=== PATIENT | female | born 1990 | race Caucasian/White ===

== ENCOUNTER 2023-11-08 14:34 | Emergency (ER) | payer SELFPAY ==
[2023-11-08 14:35] VITALS: BP 109/84; PULSE 86; RESP 18; TEMP 36.6; O2SAT 98
--- NOTE | 2023-11-08 14:47 | EDS_ITS ---
<Statement entered by Jada Queen MD - 11/08/23 19:24> I have personally performed a face to face assessment of the patient and have reviewed the AMY Note. Patient presents secondary to right upper quadrant abdominal pain. She states that she ate some peanut butter crackers and some body bars this morning and then developed right upper quadrant pain that radiates into her back. She has had nausea but no vomiting. No fever. She denies any recent food intolerance prior to today. Patient lying in bed no acute distress. Appears nontoxic. Head and neck examination unremarkable. Heart is regular rate and rhythm. Lung sounds are clear. Abdomen is soft with focal tenderness in the right upper quadrant. No guarding or rebound. CBC was a white count of 12.0 with normal differential. Hemoglobin is 13.4. Chemistry studies significant for potassium of 3.4. LFTs and lipase are normal. Urinalysis reveals no evidence of acute infection. CT scan of the abdomen pelvis with IV contrast reveals a gallstone with wall thickening. Left ovarian cyst noted. After receiving morphine and Zofran, patient continues to have right upper quadrant pain. Right upper quadrant ultrasound was ordered to evaluate for acute cholecystitis given her gallstone and gallbladder wall thickening, however patient signed out AMA before the study could be performed. HPI History of Present Illness Chief Complaint: Flank Pain Narrative Narrative: 32-year-old female ate peanut butter crackers and nutty bars around 9 AM and then developed right lower rib upper quadrant abdominal pain and mid-back pain. She states it feels like a pulsating pain. She has nausea without vomiting. She has a history of chronic constipation and had a BM a few days ago. No recent melena or hematochezia. She states in her early 20s she had a CAT scan and was told she may have Crohn's disease but has never followed up with a specialist or had any additional testing. She is not on any medications. She has had a bilateral tubal ligation. She smokes about a pack a day and denies alcohol use. [facility] Medical History (Updated 11/08/23 @ 16:43 by PETROS Sherwood) Physical exam, pre-employment Home Medications ?Medication ?Instructions ?Recorded ?Last Taken ?Type ferrous sulfate 324 mg (65 mg 324 mg PO BID 05/08/16 05/08/16 History iron) tablet,delayed release ibuprofen 600 mg tablet 600 mg PO 4X/DAY PRN pain or 05/08/16 Unknown Rx cramping #30 tabs oxycodone 5 mg tablet 5 - 10 mg (1 - 2 x 5 mg) PO Q4H 05/08/16 Unknown Rx PRN PRN Mod-Severe Pain (4-10/10) ##30 vits,calcium no.78-iron 1 tab PO DAILY 05/08/16 1 Day Ago History fumarate-folic acid 29 mg-1 mg ~05/07/16 tablet (Prenatabs FA) Allergy/AdvReac Type Severity Reaction Status Date / Time No Known Allergies Allergy Verified 11/08/23 14:35 Social History Smoking Status: Current every day smoker tobacco type: cigarettes ROS ROS ED ROS Narrative Constitutional: Negative for fever, chills, malaise. CVS: Negative for chest pain. Respiratory: Negative for shortness of breath, cough. GI: Positive for abdominal pain, nausea, constipation. Negative for vomiting, diarrhea, melena, hematochezia. : Negative for dysuria, hematuria or frequency. EXAM Physical Exam Narrative Exam Narrative: CONST: Patient sitting in no acute distress. EYES: Normal inspection. NECK: Normal inspection. RESP: No respiratory distress, CTAB. CVS: Regular rate and rhythm, no murmur, no gallop. ABD: Soft with RUQ and epigastric tenderness, no guarding or rebound, nondistended, no hepatosplenomegaly. Negative Gilmore sign. Back: Normal inspection, no CVA tenderness. SKIN: Color normal, no rash, warm, dry, intact. EXTREMITIES: Normal appearance, no pedal edema. NEURO: Alert and answering questions appropriately. PSYCH: Normal affect. Const Vital Signs: 11/08/23 14:35 11/08/23 16:35 Temperature 97.8 F Temperature Source Temporal Pulse Rate 86 81 Respiratory Rate 18 16 Blood Pressure 109/84 H 121/75 H Blood Pressure Mean 92 90 Pulse Ox 98 98 Oxygen Delivery Method Room Air Room Air MDM MDM MDM Narrative Medical decision making narrative: 32-year-old female with RUQ abdominal pain and back pain that started after eating this morning. She appears well and nontoxic. Vital signs stable. She is tender in the RUQ on exam, no flank tenderness. Labs show white count of 12.0, CMP and lipase unremarkable. Urinalysis negative. She has had a tubal ligation so I did not obtain a test. CT scan shows gallbladder wall thickening with a gallstone. After IV morphine and Zofran she still has mild RUQ tenderness but negative Gilmore sign. I ordered a follow-up gallbladder ultrasound and the tech was called in when the patient decided she did not want to wait and needed to go home and care for her dog and left AMA. I thoroughly discussed the risks including the possibility that this is acute cholecystitis or choledocholithiasis and could lead to end-organ damage or . She expressed understanding and is leaving. She was given the general surgery office number and told to return if symptoms worsen. Lab Data Attestation: I reviewed the patient's lab results. Labs: Laboratory Results - last 24 hr 11/08/23 11/08/23 14:50 15:41 WBC 12.0 H RBC 4.46 Hgb 13.4 Hct 40.7 MCV 91.3 MCH 30.0 MCHC 32.9 RDW Std Deviation 44.9 H RDW Coeff of Janna 13.3 Plt Count 271 MPV 9.7 Immature Gran % (Auto) 0.300 Neut % (Auto) 58.2 Lymph % (Auto) 32.9 [place] % (Auto) 5.3 Eos % (Auto) 2.7 Baso % (Auto) 0.6 Absolute Neuts (auto) 7.0 Absolute Lymphs (auto) 3.96 Nucleated RBC % 0 Sodium 138 Potassium 3.4 L Chloride 107 Carbon Dioxide 24.0 Anion Gap 7 BUN 8 Creatinine 0.78 Est GFR (MDRD) Af Amer 110 Est GFR (MDRD) Non-Af 91 BUN/Creatinine Ratio 10.3 Glucose 101 Calcium 8.9 Total Bilirubin 0.30 AST 15 ALT 20 Alkaline Phosphatase 83 Total Protein 7.0 Albumin 3.9 Globulin 3.1 Albumin/Globulin Ratio 1.3 Lipase 32 Urine Color Yellow Urine Clarity Clear Urine pH 6.0 Ur Specific [place] 1.010 Urine Protein 15 H Urine Glucose (UA) Normal Urine Ketones Negative Urine Occult Blood Negative Urine Nitrite Negative Urine Bilirubin Negative Urine Urobilinogen Normal Ur Leukocyte Esterase Negative Urine RBC 0 SEEN Urine WBC 0 SEEN Ur Squamous Epith Cells 5-10 SEEN Urine Bacteria 1+ Urine Mucus 0 SEEN Radiography Diagnostic Testing: Clinical Impression(s) from Imaging Studies Abdomen/Pelvis CT 11/08/23 14:48 IMPRESSION: Gallstone. Gallbladder wall thickening. Hepatomegaly. No biliary dilatation. Left ovarian cyst. Electronically Signed: Iftikhar Quiroz MD at 15:49 EDT , Discharge Plan Triage Chief Complaint: Flank Pain ED Midlevel Provider: Shyann Dorado ED Provider: Jada Queen Dx/Rx/DC Orders Clinical Impression: Gallstone, Abdominal pain, RUQ Instructions: ED Gallstones with Biliary Colic Prescriptions: No Action ferrous sulfate 324 MG tablet,delayed release (DR/EC) 324 mg PO BID Patient Comments: [id number] [Prenatabs FA] 1 TABLET tablet 1 tab PO DAILY ibuprofen 600 MG tablet 600 mg PO 4X/DAY PRN (Reason: pain or cramping) Qty: 30 1RF oxycodone 5 MG tablet 5 - 10 mg PO Q4H PRN PRN (Reason: Mod-Severe Pain (4-10/10)) Qty: 30 0RF Primary Care Provider: Care Physician,No Primary Referrals: Prasad Dowling MD [Med Staff - Active Staff] - Care Physician,No Primary [Primary Care Provider] - Activity Restrictions/Additional Instructions: Follow-up with a general surgeon for evaluation of your gallbladder. If symptoms worsen come back to the ER. Print Language: Togolese Disposition Disposition: Home, Self Care
--- NOTE | 2023-11-08 14:48 | CT_ITS ---
STUDY: CT ABDOMEN AND PELVIS WITH CONTRAST REASON FOR EXAM: Female, 32 years old. Abdominal pain RADIATION DOSAGE (If Supplied By Facility): CTDIvol = ( 21.64 ) mGy, DLP = ( 1132.62 ) mGycm TECHNIQUE: Transaxial images were obtained from the dome of the diaphragm to the symphysis pubis without oral contrast. IV 100mL Isovue-370 was administered. Sagittal and coronal images were reconstructed. Individualized dose optimization techniques were used for this CT. COMPARISON: None. FINDINGS: The visualized lung bases are unremarkable. The visualized portions of the heart are within normal limits. There is hepatomegaly with diffuse hepatic enlargement. There is a solitary gallstone. There is gallbladder wall thickening. Normal spleen. Normal pancreas. Normal bilateral adrenal glands. Normal right kidney. Normal left kidney. Normal visualized stomach. Normal small intestine. Normal colon. The appendix is visualized and appears normal. Normal abdominal aorta. Normal inferior vena cava. Normal retroperitoneum. Normal urinary bladder. Normal visualized uterus. There is 2.4 cm left ovarian cyst. There is no free fluid in the abdomen or pelvis. Normal abdominal wall. Normal osseous structures. CT/Abdomen/Pelvis W IV Cont ONLY IMPRESSION: Gallstone. Gallbladder wall thickening. Hepatomegaly. No biliary dilatation. Left ovarian cyst. Electronically Signed: Iftikhar Quiroz MD at 15:49 EDT ,
[2023-11-08] MEDS: 0.9% Normal Saline (1000mL) 1,000 ML 999 ML IV (14:55)
[2023-11-08] MEDS: Ondansetron 4 MG/2 ML Vial IV (14:56)
[2023-11-08] MEDS: Morphine 4 MG/ML Syringe IV (14:56)
[2023-11-08 14:58] LABS: Absolute Lymphocyte Count 3.96 X10^3/uL (0.83-4.51); Basophil# 0.07 X10^3/uL; Basophil% 0.6 % (0-1); Eosinophil# 0.33 X10^3/uL; Eosinophils% 2.7 % (0-5); Hematocrit 40.7 % (37-47); Hemoglobin 13.4 g/dL (12.0-15.0); Lymphocyte # 3.96 X10^3/ul (0.83-4.51); Lymphocyte % 32.9 % (19-41); Mean Corp Hgb Conc 32.9 g/dL (32-36); Mean Corpuscular Volume 91.3 fL (81-99); Mean Platelet Vol. 9.7 fl (6.2-12.0); Monocyte# 0.64 X10^3/uL; Monocyte% 5.3 % (0-10); NRBC Flagged by Analyzer 0 % (0-5); Neutrophil # 6.99 X10^3/uL (2.7-7.7); Neutrophil % 58.2 % (47-70); Platelet Count 271 K/mm3 (150-450); RBC Distribution Width CV 13.3 % (11.6-14.6); RBC Distribution Width SD 44.9 fl (35.1-43.9); Red Blood Count 4.46 M/mm3 (4.2-5.4)
[2023-11-08 15:18] LABS: ALB/GLOB Ratio 1.3 RATIO (0.9-2.4); AST(SGOT) 15 U/L (15-37); Alanine Aminotransfer ALT/SGPT 20 U/L (13-56); Albumin, Serum 3.9 g/dL (3.2-5.0); Alkaline Phosphatase 83 U/L (45-117); Anion Gap 7 (5-15); BUN 8 mg/dL (7-18); BUN/Creat Ratio 10.3 RATIO (10-20); Calcium,Total 8.9 mg/dL (8.5-10.1); Chloride 107 mmol/L (98-107); Creatinine, Serum 0.78 mg/dL (0.55-1.02); EST Glomerular Filtration Rate 91 mL/min (>60); Est Glom Filt Rate - Afr Amer 110 mL/min (>60); Globulin 3.1 g/dL (2.2-4.2); Glucose 101 mg/dL (74-106); Lipase 32 U/L (13-75); Potassium 3.4 mmol/L (3.5-5.1); Sodium Level 138 mmol/L (136-145)
[2023-11-08 15:48] LABS: Mucous, Urine 0 SEEN /hpf (<or=2+); Red Blood Cells-Urine 0 SEEN /hpf (0-5); White Blood Cells 0 SEEN /hpf (0-5)
[2023-11-08 15:50] LABS: Color, Urine Yellow (Yellow); Glucose, Dipstick Normal (Normal); Ketone-Dipstick Negative (Negative); Leukocyte Esterase-Dipstick Negative /ul (Negative); Nitrite-Dipstick Negative (Negative); Occult Blood-Urine Negative /ul (Negative); Protein-Dipstick 15 mg/dl (Negative); Urine Bilirubin Dipstick Negative (Negative); Urine Clarity Clear (Clear); Urine Urobilinogen Normal (Normal)
[2023-11-08 16:08] LABS: Squamous Epithelial Cells - UA 5-10 SEEN /hpf (5-10)
[2023-11-08] MEDS: Ketorolac 15 MG/ML Vial IV (16:08)
[2023-11-08 16:09] LABS: Bacteria 1+ /hpf (None Seen)
[2023-11-08 16:35] VITALS: BP 121/75; PULSE 81; RESP 16; O2SAT 98
== END 2023-11-08 16:59 | disposition home or self-care (01) ==
PROVIDERS: Physician Assistant; Emergency Provider Emergency Medicine; Visit Provider Emergency Medicine
DX: K80.20 Calculus of gallbladder without cholecystitis without obstruction (principal); R10.11 Right upper quadrant pain; F17.210 Nicotine dependence, cigarettes, uncomplicated
CPT/HCPCS: 74177; 80053; 81001; 83690; 85025; 96374; 96375; 96376; 99283; Q9967; J2405

== ENCOUNTER 2023-12-07 20:17 | Emergency (ER) | payer MEDICAID, SELFPAY ==
[2023-12-07 20:19] VITALS: BP 123/92; PULSE 89; RESP 14; TEMP 35.9; O2SAT 100; BMI 31.4
--- NOTE | 2023-12-07 21:00 | CT_ITS ---
STUDY: CT ABDOMEN AND PELVIS WITH CONTRAST REASON FOR EXAM: Female, 33 years old. abdominal pain RADIATION DOSAGE (If Supplied By Facility): CTDIvol = ( 14.53 ) mGy, DLP = ( 1054.87 ) mGycm TECHNIQUE: Transaxial images were obtained from the dome of the diaphragm to the symphysis pubis without oral contrast. IV 100mL Isovue-370 was administered. Sagittal and coronal images were reconstructed. Individualized dose optimization techniques were used for this CT. COMPARISON: None. FINDINGS: The visualized lung bases are unremarkable. The visualized portions of the heart are within normal limits. Normal liver. Cholelithiasis. No significant dilatation of the extrahepatic biliary system. Normal spleen. Normal pancreas. Normal bilateral adrenal glands. Normal right kidney. Normal left kidney. Normal visualized stomach. Normal small intestine. Normal colon. The appendix is visualized and appears normal. Normal abdominal aorta. Normal inferior vena cava. Normal retroperitoneum. Normal urinary bladder. Right ovarian cystic lesion measuring 3.1 cm Normal abdominal wall. Normal osseous structures. CT/Abdomen/Pelvis W IV Cont ONLY IMPRESSION: Right ovarian cystic lesion. Electronically Signed: Shade Moore DO at 22:07 EDT Reading Location ID and State: [facility] / [place] Tel [phone], Service support ,
[2023-12-07] MEDS: Morphine 4 MG/ML Syringe IV (21:07)
[2023-12-07] MEDS: Ondansetron 4 MG/2 ML Vial IV (21:07)
[2023-12-07] MEDS: 0.9% Normal Saline (1000mL) 1,000 ML 999 ML IV (21:08)
--- NOTE | 2023-12-07 21:45 | EDS_ITS ---
HPI <KUMAR Barkley - Last Filed: 12/07/23 21:59> History of Present Illness Chief Complaint: Abd Pain Narrative Narrative: Patient is a 33-year-old female with history of bipolar who presents to the emergency department for ongoing pain to the right upper quadrant. Patient was seen on November 08 2023, she had significant pain to the right upper quadrant. She did have a CT at that time, there was some gallbladder wall thickening however no biliary dilatation. Patient was then ordered an ultrasound however left prior to the ultrasound being completed. Patient states that she had pain starting this morning, but it went away. After lunch, she the pain got much more severe, right upper quadrant due to her back. Patient dates she is nauseous however cannot vomit, denies any fevers or chills. [facility] <KUMAR Barkley - Last Filed: 12/07/23 21:59> [facility] Medical History (Updated 12/07/23 @ 22:[address] Iron Abraham MD) Physical exam, pre-employment Home Medications ?Medication ?Instructions ?Recorded ?Last Taken ?Type aripiprazole 5 mg tablet (Abilify) 5 mg PO QHS 12/07/23 Unknown History Allergy/AdvReac Type Severity Reaction Status Date / Time No Known Allergies Allergy Verified 12/07/23 20:19 Social History Smoking Status: Current every day smoker tobacco type: cigarettes ROS <KUMAR Barkley - Last Filed: 12/07/23 21:59> ROS ED ROS Narrative Constitutional: Negative for fever, chills, weight loss, weakness Eyes: Negative for vision loss, vision change, double vision ENT: Negative for any sore throat, ear pain, congestion Cardiovascular: Negative for any chest pain, tightness, palpitations Respiratory: Negative for any cough, sputum production, hemoptysis, dyspnea, dyspnea on exertion, orthopnea Gastrointestinal: Negative for any, vomiting, diarrhea, constipation, blood in stool, blood in vomit. Positive for abdominal pain, nausea : Negative for any urinary frequency, dysuria, retention, blood in urine Muscle skeletal: Negative for any neck pain, back pain Neurological: Negative for any headache, syncope, dizziness Skin: Negative for any rashes, itching, abrasions, lacerations Psychiatric: Negative for any depression, anxiety, stress, suicidal ideation, homicidal ideation Hematologic: Negative for any excessive bruising, easy bleeding EXAM <KUMAR Barkley - Last Filed: 12/07/23 21:59> Physical Exam Narrative Exam Narrative: Vital signs reviewed. Patient does appear uncomfortable during my initial evaluation. Patient is tearful HEET: Head normocephalic atraumatic, TMs clear bilaterally. Posterior pharynx is clear, moist mucous membranes. Nares clear bilaterally. Neck: Supple with no lymphadenopathy or tenderness. No signs of meningismus. Cardiac: Regular rate and rhythm no murmurs gallops or rubs, equal peripheral pulses bilaterally. Respiratory: Lungs clear to auscultation bilaterally. No chest tenderness. Abdomen: . Patient has positive Gilmore sign, significant pain to the right upper quadrant, also some pain on palpation to the right mid to lower abdomen. No peritoneal signs. Active bowel sounds in all quadrants. No abdominal bruit or pulsatile masses. No hepatosplenomegaly Extremities: No peripheral edema, no signs of gross trauma or deformity. Active full range of motion of all extremities. Neuro: Cranial nerves II through XII intact, no focal neurological deficits. Skin: Clean dry and intact with no rash, purpura, petechiae, vesicles or pustules. Backs/flank: No CVA tenderness, no midline spinal tenderness, no deformity. Psych: Normal mood and affect. No SI, HI or acute psychosis. Const Vital Signs: 12/07/23 20:19 Temperature 96.7 F L Temperature Source Temporal Pulse Rate 89 Respiratory Rate 14 Blood Pressure 123/92 H Blood Pressure Mean 102 Pulse Ox 100 Oxygen Delivery Method Room Air Positive well nourished and well developed General Appearance ED: well developed <Dr. Iron Abraham MD - Last Filed: 12/07/23 22:56> Physical Exam Const Vital Signs: 12/07/23 20:19 Temperature 96.7 F L Temperature Source Temporal Pulse Rate 89 Respiratory Rate 14 Blood Pressure 123/92 H Blood Pressure Mean 102 Pulse Ox 100 Oxygen Delivery Method Room Air MDM <KUMAR Barkley - Last Filed: 12/07/23 21:59> MDM Lab Data Labs: Laboratory Results - last 24 hr 12/07/23 12/07/23 21:09 21:50 WBC 11.2 H RBC 4.46 Hgb 13.6 Hct 41.9 MCV 93.9 MCH 30.5 MCHC 32.5 RDW Std Deviation 46.8 H RDW Coeff of Janna 13.6 Plt Count 283 MPV 9.8 Immature Gran % (Auto) 0.400 Neut % (Auto) 50.2 Lymph % (Auto) 41.7 H [place] % (Auto) 5.2 Eos % (Auto) 2.0 Baso % (Auto) 0.5 Absolute Neuts (auto) 5.6 Absolute Lymphs (auto) 4.68 H Nucleated RBC % 0 Sodium 138 Potassium 3.8 Chloride 105 Carbon Dioxide 28.0 Anion Gap 5 BUN 11 Creatinine 0.83 Estim Creat Clear Calc 100.48 Est GFR (MDRD) Af Amer 102 Est GFR (MDRD) Non-Af 84 BUN/Creatinine Ratio 13.3 Glucose 95 Calcium 9.2 Total Bilirubin 0.20 Direct Bilirubin 0.11 AST 9 L ALT 32 Alkaline Phosphatase 87 Total Protein 6.8 Albumin 3.9 Globulin 2.9 Albumin/Globulin Ratio 1.3 Lipase 35 Radiography Diagnostic Testing: Clinical Impression(s) from Imaging Studies Abdomen/Pelvis CT 12/07/23 21:00 IMPRESSION: Right ovarian cystic lesion. Electronically Signed: Shade Moore DO at 22:07 EDT Reading Location ID and State: [facility] / [place] Tel [phone], Service support , Treatment and Re-Evaluation :: Differential diagnosis includes however is not limited to: Acute cholecystitis, cholelithiasis, acute on chronic abdominal pain, pancreatitis, bowel obstruction, appendicitis Patient on my initial evaluation was tearful, looking uncomfortable, vital signs are stable. Nontoxic-appearing. Patient presents to the emerged department for pain to the right upper quadrant. She states this is similar from when she was here in October. Patient was seen a full abdominal workup, patient was seen abdominal CT scan, laboratory values, patient given IV morphine, Zofran, IV Toradol. All radiologic examinations were read, reviewed by the emergency department attending. From these reads, a plan of care will be put in place. <Dr. Iron Abraham MD - Last Filed: 12/07/23 22:56> [facility] Narrative Medical decision making narrative: I have personally performed a face to face assessment of the patient and have reviewed the AMY Note. I performed a substantive portion of the visit including all aspects of the following. My camacho findings include: History is 33-year-old female complaining right upper quadrant abdominal pain. Prior history diagnosed about a month ago in October with gallstone. They are going to an ultrasound on that ER visit but she had to leave. Had recurrent pain today. No fever. Nausea. Normal bowel movements. No dysuria. Exam is [well-appearing 33-year-old female. Vital signs stable afebrile. H EENT exam unremarkable. Mytrex membranes. Lungs clear to auscultation. Heart regular rhythm no murmur. Abdomen soft nondistended normal bowel sounds. No peritoneal signs. Currently no Gilmore sign. She has been medicated with morphine, Toradol and Zofran prior to my exam. There is no hernia or mass. No distention. Absolutely no lower quadrant tenderness no McBurney's point tenderness. Soft with normal bowel sounds. Back nontender. Moving all 4 extremities. Nontender no edema. She is awake and alert. No focal motor deficits.] Medical Decision Making [33-year-old abdominal pain. History of gallstones. CAT scan labs pending. She has been treated with medications for pain and nausea.] Other additions or changes: [Repeat exam patient doing well at 10:50 PM. I suspect is secondary to biliary colic. She has no elevated white count or fever. Abdomen is benign. CAT scan shows cholelithiasis but not cholecystitis. Should be discharged home with outpatient follow-up with general surgery Dr. Prasad Dowling. Patient is comfortable to plan. She is Tylenol and or Motrin f or pain as needed.] History & Record Review Discussion w/independent historian: Patient Additional record(s) reviewed:: Prior inpatient record, Prior outpatient record, Prior ED visit and Prior labs Lab Data Attestation: I reviewed the patient's lab results. Lab results narrative: CBC white count 9.2. H&H 13.6 and 41. Platelets 283. Electrolytes show gap 5. Normal BUN and creatinine. Glucose 95. Liver enzymes normal. Lipase normal at 35. CAT scan shows a right ovarian cyst. And gallstones but no signs of acute cholecystitis. Labs: Laboratory Results - last 24 hr 12/07/23 12/07/23 21:09 21:50 WBC 11.2 H RBC 4.46 Hgb 13.6 Hct 41.9 MCV 93.9 MCH 30.5 MCHC 32.5 RDW Std Deviation 46.8 H RDW Coeff of Janna 13.6 Plt Count 283 MPV 9.8 Immature Gran % (Auto) 0.400 Neut % (Auto) 50.2 Lymph % (Auto) 41.7 H [place] % (Auto) 5.2 Eos % (Auto) 2.0 Baso % (Auto) 0.5 Absolute Neuts (auto) 5.6 Absolute Lymphs (auto) 4.68 H Nucleated RBC % 0 Sodium 138 Potassium 3.8 Chloride 105 Carbon Dioxide 28.0 Anion Gap 5 BUN 11 Creatinine 0.83 Estim Creat Clear Calc 100.48 Est GFR (MDRD) Af Amer 102 Est GFR (MDRD) Non-Af 84 BUN/Creatinine Ratio 13.3 Glucose 95 Calcium 9.2 Total Bilirubin 0.20 Direct Bilirubin 0.11 AST 9 L ALT 32 Alkaline Phosphatase 87 Total Protein 6.8 Albumin 3.9 Globulin 2.9 Albumin/Globulin Ratio 1.3 Lipase 35 Radiography Diagnostic Testing: Clinical Impression(s) from Imaging Studies Abdomen/Pelvis CT 12/07/23 21:00 IMPRESSION: Right ovarian cystic lesion. Electronically Signed: Shade Moore DO at 22:07 EDT Reading Location ID and State: [facility] / [place] Tel [phone], Service support , Discharge Plan Triage Chief Complaint: Abd Pain Other Complaint: Nausea/Vomiting ED Midlevel Provider: Carlos Manuel Amado ED Provider: Iron Abraham Dx/Rx/DC Orders Clinical Impression: Abdominal pain, Biliary colic, History of gallstones Instructions: ED Gallstones with Biliary Colic Prescriptions: No Action aripiprazole [Abilify] 5 mg tablet 5 mg PO QHS Primary Care Provider: Care Physician,No Primary Referrals: Prasad Dowling MD [Med Staff - Active Staff] - As soon as possible Care Physician,No Primary [Primary Care Provider] - Activity Restrictions/Additional Instructions: Tylenol and/or Motrin for recurrent pain. Call and follow-up with the general surgeon Dr. Prasad Dowling to be evaluated for possible gallbladder removal. If you develop increasing pain, fever or intractable vomiting return. Otherwise this can be followed up as an outpatient and be done electively. Print Language: French Disposition Disposition: Home, Self Care
[2023-12-07 21:49] LABS: Absolute Lymphocyte Count 4.68 X10^3/uL (0.83-4.51); Absolute Neutrophil Count 5.6 X10^3/uL (2.0-7.7); Basophil# 0.06 X10^3/uL; Basophil% 0.5 % (0-1); Eosinophil# 0.23 X10^3/uL; Hematocrit 41.9 % (37-47); Hemoglobin 13.6 g/dL (12.0-15.0); Lymphocyte # 4.68 X10^3/ul (0.83-4.51); Lymphocyte % 41.7 % (19-41); Mean Corp Hgb Conc 32.5 g/dL (32-36); Mean Corpuscular Hgb 30.5 pg (27.0-32.0); Mean Corpuscular Volume 93.9 fL (81-99); Mean Platelet Vol. 9.8 fl (6.2-12.0); Monocyte# 0.58 X10^3/uL; Monocyte% 5.2 % (0-10); NRBC Flagged by Analyzer 0 % (0-5); Neutrophil # 5.63 X10^3/uL (2.7-7.7); Neutrophil % 50.2 % (47-70); Platelet Count 283 K/mm3 (150-450); RBC Distribution Width CV 13.6 % (11.6-14.6); RBC Distribution Width SD 46.8 fl (35.1-43.9); Red Blood Count 4.46 M/mm3 (4.2-5.4); White Blood Count 11.2 K/mm3 (4.4-11.0)
[2023-12-07] MEDS: Ketorolac 15 MG/ML Vial IV (21:49)
[2023-12-07 21:56] LABS: ALB/GLOB Ratio 1.3 RATIO (0.9-2.4); AST(SGOT) 9 U/L (15-37); Alanine Aminotransfer ALT/SGPT 32 U/L (13-56); Albumin, Serum 3.9 g/dL (3.2-5.0); Alkaline Phosphatase 87 U/L (45-117); Anion Gap 5 (5-15); BUN 11 mg/dL (7-18); BUN/Creat Ratio 13.3 RATIO (10-20); Bilirubin, Direct 0.11 mg/dL (0.00-0.30); Calcium,Total 9.2 mg/dL (8.5-10.1); Chloride 105 mmol/L (98-107); Creatinine, Serum 0.83 mg/dL (0.55-1.02); EST Glomerular Filtration Rate 84 mL/min (>60); Est Glom Filt Rate - Afr Amer 102 mL/min (>60); Estimated Creatinine Clearance 100.48 ml/min; Globulin 2.9 g/dL (2.2-4.2); Glucose 95 mg/dL (74-106); Potassium 3.8 mmol/L (3.5-5.1); Protein, Total 6.8 g/dL (6.4-8.2); Sodium Level 138 mmol/L (136-145)
[2023-12-07 22:18] VITALS: BP 103/68; PULSE 71; RESP 20; TEMP 36.6; O2SAT 99
[2023-12-07 22:22] LABS: Lipase 35 U/L (13-75)
== END 2023-12-07 23:04 | disposition home or self-care (01) ==
PROVIDERS: Nurse Practitioner; Emergency Provider Emergency Medicine; Visit Provider Emergency Medicine
DX: R11.2 Nausea with vomiting, unspecified (principal); F31.9 Bipolar disorder, unspecified; F17.210 Nicotine dependence, cigarettes, uncomplicated; R10.11 Right upper quadrant pain; Z79.899 Other long term (current) drug therapy; K80.50 Calculus of bile duct without cholangitis or cholecystitis without obstruction; Z87.19 Personal history of other diseases of the digestive system
CPT/HCPCS: 74177; 80053; 80076; 83690; 85025; 96361; 96374; 96375; 99283; Q9967; J2405

== ENCOUNTER 2023-12-15 03:08 | Emergency (ER) | payer MEDICAID, SELFPAY ==
[2023-12-15 03:11] VITALS: BP 92/67; PULSE 61; RESP 20; TEMP 36.5; O2SAT 98; BMI 31.8
[2023-12-15] MEDS: Ondansetron 4 MG/2 ML Vial IV (03:45)
[2023-12-15] MEDS: 0.9% Normal Saline (1000mL) 1,000 ML 999 ML IV (03:45)
[2023-12-15] MEDS: HYDROmorphone 1 MG/ML Syringe IV (03:46)
[2023-12-15 03:48] LABS: Absolute Lymphocyte Count 4.32 X10^3/uL (0.83-4.51); Absolute Neutrophil Count 6.5 X10^3/uL (2.0-7.7); Basophil# 0.07 X10^3/uL; Basophil% 0.6 % (0-1); Eosinophil# 0.27 X10^3/uL; Eosinophils% 2.2 % (0-5); Hematocrit 40.8 % (37-47); Hemoglobin 13.2 g/dL (12.0-15.0); Lymphocyte # 4.32 X10^3/ul (0.83-4.51); Lymphocyte % 35.5 % (19-41); Mean Corp Hgb Conc 32.4 g/dL (32-36); Mean Corpuscular Hgb 29.9 pg (27.0-32.0); Mean Corpuscular Volume 92.5 fL (81-99); Mean Platelet Vol. 9.8 fl (6.2-12.0); Monocyte% 7.4 % (0-10); NRBC Flagged by Analyzer 0 % (0-5); Neutrophil # 6.52 X10^3/uL (2.7-7.7); Neutrophil % 53.6 % (47-70); Platelet Count 246 K/mm3 (150-450); RBC Distribution Width CV 13.9 % (11.6-14.6); RBC Distribution Width SD 46.9 fl (35.1-43.9); Red Blood Count 4.41 M/mm3 (4.2-5.4); White Blood Count 12.2 K/mm3 (4.4-11.0)
[2023-12-15 04:03] LABS: Internal QC Validated? YES +Cl - CLEAR BKGD
[2023-12-15 04:04] LABS: Pregnancy, Serum, hCG Quali. NEGATIVE Negative
[2023-12-15 04:27] LABS: AST(SGOT) 9 U/L (15-37); Alanine Aminotransfer ALT/SGPT 25 U/L (13-56); Albumin, Serum 3.7 g/dL (3.2-5.0); Alkaline Phosphatase 86 U/L (45-117); Anion Gap 6 (5-15); BUN 13 mg/dL (7-18); BUN/Creat Ratio 15.7 RATIO (10-20); Bilirubin, Direct 0.05 mg/dL (0.00-0.30); Calcium,Total 9.2 mg/dL (8.5-10.1); Chloride 105 mmol/L (98-107); Creatinine, Serum 0.83 mg/dL (0.55-1.02); EST Glomerular Filtration Rate 85 mL/min (>60); Est Glom Filt Rate - Afr Amer 102 mL/min (>60); Estimated Creatinine Clearance 101.27 ml/min; Globulin 3.1 g/dL (2.2-4.2); Glucose 84 mg/dL (74-106); Lipase 47 U/L (13-75); Potassium 3.8 mmol/L (3.5-5.1); Protein, Total 6.8 g/dL (6.4-8.2); Sodium Level 139 mmol/L (136-145)
--- NOTE | 2023-12-15 05:21 | EX.ED.DYSGE1 ---
HPI History of Present Illness Chief Complaint: Abd Pain Informant: patient Narrative Narrative: Patient is a 33-year-old female who was seen on November 07 and December [address] scans which documented gallstones. She states she has not been able to follow-up with a general surgeon at this time to discuss potential cholecystectomy. She states this evening she ate nachos covered in ground beef as well as cheese and drank a large glass of milk. After eating this a few hours later she began with abdominal pain in the right upper and mid epigastric region. She states the pain was similar nature to her previous episodes of gallbladder dysfunction and as is not improving she presents for evaluation. [facility] Medical History (Updated 12/15/23 @ 05:[address] Guero Ureña, DO) Physical exam, pre-employment Home Medications ?Medication ?Instructions ?Recorded ?Last Taken ?Type aripiprazole 5 mg tablet (Abilify) 5 mg PO QHS 12/07/23 Unknown History ondansetron 4 mg disintegrating 4 mg PO TID PRN nausea and 12/15/23 Unknown Rx tablet vomiting #21 tabs oxycodone-acetaminophen 5 mg-325 1 tab PO Q6H PRN pain 3 days #12 12/15/23 Unknown Rx mg tablet (Percocet) tabs Allergy/AdvReac Type Severity Reaction Status Date / Time No Known Allergies Allergy Verified 12/15/23 03:13 Surgical History (Updated 12/15/23 @ 03:13 by Eboni Johnson) Previous section Social History Smoking Status: Current every day smoker tobacco type: cigarettes ROS ROS ED Constitutional Constitutional ED: Denies chills or fever(s) Eyes Eyes: Denies blurry vision or change in vision ENT ENT ED: Denies sore throat Cardiovascular Cardiovascular: Denies chest pain Respiratory/Chest Respiratory/Chest: Denies cough or dyspnea Gastrointestinal Gastrointestinal: Reports abdominal pain and nausea; Denies diarrhea or vomiting Genitourinary Genitourinary ED: Denies dysuria or hematuria Musculoskeletal Musculoskeletal: Denies myalgias Integumentary Denies rash Neurologic Neurologic: Denies headache(s) Hematologic/Lymphatic Hematologic/Lymphatic: Denies easy bleeding or easy bruising EXAM Physical Exam Const Vital Signs: 12/15/23 03:11 12/15/23 05:49 Temperature 97.7 F L 97.9 F Temperature Source Oral Pulse Rate 61 74 Respiratory Rate 20 H 16 Blood Pressure 92/67 139/74 H Blood Pressure Mean 75 95 Pulse Ox 98 99 Oxygen Delivery Method Room Air Positive well nourished, well developed and obese General Appearance ED: well developed; Negative for pallor Nutritional Appearance: obese HEENT Reports moist mucous membranes HEENT Narrative: No signs of infection noted in the posterior pharynx Eyes PERRL and EOMs intact bilaterally General Eye ED: Negative for scleral icterus Neck supple Resp normal respiratory effort and clear to auscultation bilaterally Cardio regular rate and regular rhythm GI non-distended and no masses GI Narrative: Abdomen is soft and nondistended with normal active bowel sounds. There is pain with palpation in the midepigastric and right upper quadrant region without voluntary guarding or rigidity. Negative Gilmore sign. No pulsatile mass or fluid wave Auscultation: normoactive bowel sounds Palpation: soft Back/Spine no CVA tenderness Extremity normal to inspection Neuro oriented x3, CN's II-XII intact bilaterally and no sensory deficits noted Sensorium / Orientation: alert Motor Exam: strength 5/5 throughout Psych mental status grossly normal Skin no rashes or lesions noted General Skin Exam: Negative for jaundice or pallor MDM MDM MDM Narrative Medical decision making narrative: Patient presented to the ER with stable vitals and a soft nonsurgical abdomen. She had a CT scan in October and November indicating gallstones but no other signs of acute pathology or concern for acute cholecystitis. She ate a large meal that included greasy fatty foods this evening and that would stimulate potential biliary colic. As it is middle of the night I do not feel it is necessary to perform an emergent gallbladder ultrasound as she has had CT scans documenting cholelithiasis without acute cholecystitis. In order to ensure this is biliary colic versus acute cholecystitis versus acute pancreatitis basic labs will be obtained. Patient's white blood cell count is slightly elevated which is most likely stress response as she does not have left shift or lactic acidosis. Liver enzymes are normal as well as the total bilirubin and lipase is normal going against pancreatitis. After receiving IV fluids and pain medication patient had resolution of her symptoms. Therefore at this time as history and exam indicate this is biliary colic from failure to follow a cholelithiasis diet but there are no findings of gallstone pancreatitis or secondary infection I do not feel there is need for admission or emergent surgical consultation and she is otherwise safe for discharge History & Record Review Discussion w/independent historian: Patient Lab Data Attestation: I reviewed the patient's lab results. Labs: Laboratory Results - last 24 hr 12/15/23 03:42 WBC 12.2 H RBC 4.41 Hgb 13.2 Hct 40.8 MCV 92.5 MCH 29.9 MCHC 32.4 RDW Std Deviation 46.9 H RDW Coeff of Janna 13.9 Plt Count 246 MPV 9.8 Immature Gran % (Auto) 0.700 Neut % (Auto) 53.6 Lymph % (Auto) 35.5 [place] % (Auto) 7.4 Eos % (Auto) 2.2 Baso % (Auto) 0.6 Absolute Neuts (auto) 6.5 Absolute Lymphs (auto) 4.32 Nucleated RBC % 0 Sodium 139 Potassium 3.8 Chloride 105 Carbon Dioxide 28.0 Anion Gap 6 BUN 13 Creatinine 0.83 Estim Creat Clear Calc 101.27 Est GFR (MDRD) Af Amer 102 Est GFR (MDRD) Non-Af 85 BUN/Creatinine Ratio 15.7 Glucose 84 Lactic Acid 1.0 Calcium 9.2 Total Bilirubin 0.30 Direct Bilirubin 0.05 AST 9 L ALT 25 Alkaline Phosphatase 86 Total Protein 6.8 Albumin 3.7 Globulin 3.1 Lipase 47 Serum , Qual NEGATIVE Discharge Plan Triage Chief Complaint: Abd Pain ED Provider: Guero Ureña Dx/Rx/DC Orders Clinical Impression: Cholelithiasis, Biliary colic Instructions: Treating Gallstones, ED Gallstones with Biliary Colic Prescriptions: New ondansetron 4 mg tablet,disintegrating 4 mg PO TID PRN (Reason: nausea and vomiting) Qty: 21 0RF oxycodone-acetaminophen [Percocet] 5-325 mg tablet 1 tab PO Q6H PRN (Reason: pain) 3 Days Qty: 12 0RF No Action aripiprazole [Abilify] 5 mg tablet 5 mg PO QHS Primary Care Provider: Care Physician,No Primary Referrals: Milan Howe MD [Med Staff - Active Staff] - Care Physician,No Primary [Primary Care Provider] - Activity Restrictions/Additional Instructions: You need to follow-up with general surgery to discuss potential removal of your gallbladder in the meantime avoid greasy fatty foods as this will stimulate a gallbladder spasm and increase your pain Print Language: Czech Disposition Disposition: Home, Self Care Discharge Date/Time: 12/15/23 05:53
[2023-12-15 05:49] VITALS: BP 139/74; PULSE 74; RESP 16; TEMP 36.6; O2SAT 99
[2023-12-15] MEDS: Acetaminophen 500 MG Tablet 1000 MG PO (05:52)
== END 2023-12-15 05:53 | disposition home or self-care (01) ==
PROVIDERS: Emergency Provider Emergency Medicine; Visit Provider Emergency Medicine
DX: K80.70 Calculus of gallbladder and bile duct without cholecystitis without obstruction (principal); F17.210 Nicotine dependence, cigarettes, uncomplicated; E66.9 Obesity, unspecified
CPT/HCPCS: 80048; 80076; 83605; 83690; 84703; 85025; 96361; 96374; 96375; 99283; J7030; J2405

== ENCOUNTER → 2023-12-23 | Outpatient (CLI) | payer MEDICAID, SELFPAY ==
[2023-12-23 17:52] LABS: Mucous, Urine 0 SEEN /hpf (<or=2+)
[2023-12-23 18:09] LABS: Color, Urine Amber (Yellow); Glucose, Dipstick Normal (Normal); Ketone-Dipstick 5 mg/dl (Negative); Leukocyte Esterase-Dipstick 100 /ul (Negative); Nitrite-Dipstick Positive (Negative); Occult Blood-Urine Negative /ul (Negative); Protein-Dipstick 30 mg/dl (Negative); Urine Bilirubin Dipstick Negative (Negative); Urine Clarity Sl. Cloudy (Clear); Urine Urobilinogen 1 mg/dl (Normal); Urine pH 6.5 (5.0 - 8.0)
[2023-12-23 18:34] LABS: Red Blood Cells-Urine 0-5 SEEN /hpf (0-5)
[2023-12-23 18:37] LABS: Squamous Epithelial Cells - UA 0-5 SEEN /hpf (5-10); White Blood Cells 25-50 SEEN /hpf (0-5)
[2023-12-23 18:39] LABS: Bacteria 3+ /hpf (None Seen); Yeast-Urine 2+ /hpf (None Seen)
== END | disposition home or self-care (01) ==
PROVIDERS: Referring Provider Physician Assistant; Visit Provider Physician Assistant
DX: N39.0 Urinary tract infection, site not specified (principal)
CPT/HCPCS: 81001; 87086; 87088; 87186

== ENCOUNTER 2023-12-29 03:51 | Observation (INO) | payer MEDICAID, SELFPAY ==
[2023-12-29] VITALS (8 sets, daily range): BP systolic 90–149; BP diastolic 52–81; PULSE 66–79; RESP 16–18; TEMP 36.1–37.1; O2SAT 98–100; BMI 32.1; BMI 31.4
--- NOTE | 2023-12-29 03:58 | EDS_ITS ---
HPI HPI - GI History of Present Illness Chief Complaint: Abd Pain Narrative Narrative: 33-year-old female past medical history of previous biliary colic and known gallstones presents with right upper quadrant pain radiating to her back to began around 1:00 this morning, 3 hours ago. She states that she has been seen a few times in the emergency department once in October and twice in November, which was last month. She has had CT scans that showed gallstones. She was last here at the end of last month, and has not been able to see a surgeon regarding cholecystectomy. She states she been trying to eat well and not overeat. Last night, before she went to bed she ate a cheeseburger which is high in fat. She started having pain in the right upper quadrant radiating to her back similar to her previous biliary colic. She denies any problems with bowel movements, no fevers or chills, no vomiting but she might be slightly nauseated. [facility] Medical History Physical exam, pre-employment Home Medications ?Medication ?Instructions ?Recorded ?Last Taken ?Type aripiprazole 5 mg tablet (Abilify) 5 mg PO QHS 12/07/23 Unknown History ondansetron 4 mg disintegrating 4 mg PO TID PRN nausea and 12/15/23 Unknown Rx tablet vomiting #21 tabs Allergy/AdvReac Type Severity Reaction Status Date / Time No Known Allergies Allergy Verified 12/29/23 03:52 Surgical History Previous section Social History Smoking Status: Current every day smoker tobacco type: cigarettes ROS ROS ED ROS Narrative Constitutional: No fever, no chills. HEENT: No sore throat. No neck pain. No loss of vision. No rhinorrhea. Cardiovascular: No chest pain. No palpitations. No pedal edema. Respiratory: No cough, no shortness of breath. Abdominal: Right upper quadrant radiating to back type of abdominal pain. Mild nausea. No vomiting. Genitourinary: No dysuria. No hematuria. Musculoskeletal: No myalgias. No arthralgias. Neurologic: No headaches. No dizziness. No lightheadedness. Skin: No rash. No change in color. Psychiatric: No depression. No anxiety. EXAM Physical Exam Narrative Exam Narrative: Afebrile. Vital signs noted. HEENT: Normocephalic. Atraumatic. PERRL, EOMI. Neck soft and supple. No point tenderness or step off. Cardiovascular: Regular rate and rhythm. No murmurs, rubs, or gallops appreciated. Respiratory: No tachypnea. Lungs clear to auscultation bilaterally. Gastrointestinal: Abdomen soft, positive tenderness to palpation right upper quadrant with normoactive bowel sounds. No rebound or guarding. Negative Gilmore sign. Neurological: Awake. Alert. Nonfocal, nonlateralizing. Skin: No rash. Normal color. No pallor. Musculoskeletal: No pedal edema. Full range of motion extremities. Const Vital Signs: 12/29/23 03:52 Temperature 97.6 F L Temperature Source Oral Pulse Rate 79 Respiratory Rate 16 Blood Pressure 121/74 H Blood Pressure Mean 89 Pulse Ox 98 Oxygen Delivery Method Room Air MDM MDM MDM Narrative Medical decision making narrative: I reviewed the patient's prior laboratory work. She was seen in October, December 06, then around December 16 which was a week or [address] scans with cholelithiasis. Differential diagnosis includes but not limited to biliary colic versus choledocholithiasis versus pancreatitis. History and physical does not necessarily support an acute pancreatitis, or cholecystitis. Here, she is afebrile, she is not tachycardic, nontoxic-appearing. Will check her laboratory work in the form of CBC, CMP, and lipase as she will be given analgesia here. I do not feel that she requires another CT scan. Currently, at this hour, ultrasound is unavailable, but I do not feel that she would necessarily require emergent ultrasound unless she has abnormal laboratory work her pain is uncontrolled. I did review her laboratory work and she has normal white count 11.0, hemoglobin 1.5, hematocrit 38.9, platelet count normal at 275. Chloride is slightly elevated at 108 which I think is nonspecific, BUN of 13 and creatinine 0.78. Glucose is elevated at 102 which is normal anion gap of 6, lactic acid normal at 0.8 so I doubt ischemic bowel. AST level at 9 total bili 0.20, alk phos normal at 87. Repeat examination shows her abdomen to remain soft but she has epigastric to right upper quadrant pain. She will be dosed with morphine again. She has slightly elevated lipase this time of 148. This raises more concern for a gallstone pancreatitis/choledocholithiasis, although she has not had vomiting. Gallbladder ultrasound was ordered, but they will not be in for the next 2 hours until 7 AM. At this point in time, she will be observed until ultrasound can be obtained, and patient will be signed out to the oncoming physician to check the results, and make final disposition on this patient with therapy discharge versus discussion with general surgery for admission. Currently, patient is in stable condition. History & Record Review Discussion w/independent historian: Patient Additional record(s) reviewed:: Prior ED visit and Prior labs Lab Data Attestation: I reviewed the patient's lab results. Labs: Laboratory Results - last 24 hr 12/29/23 04:05 WBC 11.0 RBC 4.15 L Hgb 12.5 Hct 38.9 MCV 93.7 MCH 30.1 MCHC 32.1 RDW Std Deviation 45.1 H RDW Coeff of Janna 13.2 Plt Count 275 MPV 9.9 Immature Gran % (Auto) 0.400 Neut % (Auto) 56.5 Lymph % (Auto) 35.1 Cecil % (Auto) 5.5 Eos % (Auto) 2.0 Baso % (Auto) 0.5 Absolute Neuts (auto) 6.2 Absolute Lymphs (auto) 3.86 Nucleated RBC % 0 Sodium 139 Potassium 3.7 Chloride 108 H Carbon Dioxide 25.0 Anion Gap 6 BUN 13 Creatinine 0.78 Estim Creat Clear Calc 108.15 Est GFR (MDRD) Af Amer 109 Est GFR (MDRD) Non-Af 90 BUN/Creatinine Ratio 16.6 Glucose 102 Lactic Acid 0.8 Calcium 8.8 Total Bilirubin 0.20 AST 9 L ALT 20 Alkaline Phosphatase 87 Total Protein 6.8 Albumin 3.7 Globulin 3.1 Albumin/Globulin Ratio 1.2 Lipase 148 H Discharge Plan Triage Chief Complaint: Abd Pain ED Provider: Singh Hairston Dx/Rx/DC Orders Prescriptions: No Action ondansetron 4 mg tablet,disintegrating 4 mg PO TID PRN (Reason: nausea and vomiting) Qty: 21 0RF aripiprazole [Abilify] 5 mg tablet 5 mg PO QHS Primary Care Provider: Care Physician,No Primary Referrals: Care Physician,No Primary [Primary Care Provider] - Print Language: Bengali
[2023-12-29] MEDS: Morphine 4 MG/ML Syringe IV ×2 (04:10→05:09)
[2023-12-29] MEDS: Ondansetron 4 MG/2 ML Vial IV (04:10)
[2023-12-29] MEDS: 0.9% Normal Saline (1000mL) 1,000 ML 999 ML IV (04:10)
[2023-12-29 04:19] LABS: Absolute Lymphocyte Count 3.86 X10^3/uL (0.83-4.51); Absolute Neutrophil Count 6.2 X10^3/uL (2.0-7.7); Basophil# 0.05 X10^3/uL; Basophil% 0.5 % (0-1); Eosinophil# 0.22 X10^3/uL; Hematocrit 38.9 % (37-47); Hemoglobin 12.5 g/dL (12.0-15.0); Lymphocyte # 3.86 X10^3/ul (0.83-4.51); Lymphocyte % 35.1 % (19-41); Mean Corp Hgb Conc 32.1 g/dL (32-36); Mean Corpuscular Hgb 30.1 pg (27.0-32.0); Mean Corpuscular Volume 93.7 fL (81-99); Mean Platelet Vol. 9.9 fl (6.2-12.0); Monocyte% 5.5 % (0-10); NRBC Flagged by Analyzer 0 % (0-5); Neutrophil # 6.22 X10^3/uL (2.7-7.7); Neutrophil % 56.5 % (47-70); Platelet Count 275 K/mm3 (150-450); RBC Distribution Width CV 13.2 % (11.6-14.6); RBC Distribution Width SD 45.1 fl (35.1-43.9); Red Blood Count 4.15 M/mm3 (4.2-5.4)
[2023-12-29 04:38] LABS: ALB/GLOB Ratio 1.2 RATIO (0.9-2.4); AST(SGOT) 9 U/L (15-37); Alanine Aminotransfer ALT/SGPT 20 U/L (13-56); Albumin, Serum 3.7 g/dL (3.2-5.0); Alkaline Phosphatase 87 U/L (45-117); Anion Gap 6 (5-15); BUN 13 mg/dL (7-18); BUN/Creat Ratio 16.6 RATIO (10-20); Calcium,Total 8.8 mg/dL (8.5-10.1); Chloride 108 mmol/L (98-107); Creatinine, Serum 0.78 mg/dL (0.55-1.02); EST Glomerular Filtration Rate 90 mL/min (>60); Est Glom Filt Rate - Afr Amer 109 mL/min (>60); Estimated Creatinine Clearance 108.15 ml/min; Globulin 3.1 g/dL (2.2-4.2); Glucose 102 mg/dL (74-106); Lipase 148 U/L (13-75); Potassium 3.7 mmol/L (3.5-5.1); Protein, Total 6.8 g/dL (6.4-8.2); Sodium Level 139 mmol/L (136-145)
--- NOTE | 2023-12-29 04:39 | US_ITS ---
INDICATION: elevated lipase, gallstones EXAMINATION: Ultrasound US Abdomen Limited (quadrant) TECHNIQUE: Amaya scale and color doppler imaging was performed of the right upper quadrant. COMPARISON: No relevant prior comparison study available FINDINGS: LIVER: 18.5 cm length. Increased echogenicity. . GALLBLADDER Size: Distended. Stones: Multiple small stones. Wall thickness: Thickened. 5 mm. Pericholecystic fluid: None. Sonographic Gilmore sign: Negative. EXTRAHEPATIC BILE DUCTS: Common bile duct 8 mm is dilated. PANCREAS: Unremarkable. RIGHT KIDNEY: No hydronephrosis. ASCITES: None. US/Gallbladder IMPRESSION: Cholelithiasis. Thickened gallbladder wall may be consistent with acute or chronic cholecystitis. Dilated common bile duct. Choledocholithiasis not excluded. Hepatomegaly with fatty infiltration. Electronically Signed: Pauline Gotti MD at 7:35 EDT ,
[2023-12-29 04:41] LABS: Lactic Acid 0.8 mmol/L (0.4-1.9)
--- NOTE | 2023-12-29 05:15 | ED.RN ---
This RN went into the room to medicate the patient. This RN noticed the patient had a vape in her hand and a certain aroma in the room. This RN educated the patient about the no smoking policy and instructed the patient to put it away.
[2023-12-29 08:14] LABS: Mucous, Urine 0 SEEN /hpf (<or=2+); Red Blood Cells-Urine 0 SEEN /hpf (0-5)
[2023-12-29 08:18] LABS: Color, Urine Yellow (Yellow); Glucose, Dipstick Normal (Normal); Ketone-Dipstick Negative (Negative); Leukocyte Esterase-Dipstick 25 /ul (Negative); Nitrite-Dipstick Negative (Negative); Occult Blood-Urine Negative /ul (Negative); Protein-Dipstick 15 mg/dl (Negative); Specific Gravity, Urine 1.015 (1.002-1.030); Urine Bilirubin Dipstick Negative (Negative); Urine Clarity Sl. Cloudy (Clear); Urine Urobilinogen Normal (Normal)
[2023-12-29 08:25] LABS: Amorphous Sediment 1+; Bacteria 1+ /hpf (None Seen); Squamous Epithelial Cells - UA 0-5 SEEN /hpf (5-10); White Blood Cells 0-5 SEEN /hpf (0-5)
[2023-12-29 08:26] LABS: Internal QC Validated? YES +Cl - CLEAR BKGD; Pregnancy, Urine Negative Negative; Record Kit Lot#,Urine Preg HCG0000772476
[2023-12-29] MEDS: Piperacil/Tazobactam 4.5 GM in 0.9% Normal Saline (100mL MB+) 100 ML IV (09:43)
--- NOTE | 2023-12-29 10:47 | PCM.HP.STD ---
Documented by User: Leticia MORRELL PA-C 12/29/23 12:17 HPI - General General Date of Admission: 12/29/23 Date of Service: 12/29/23 Chief Complaint: Right upper quadrant pain HPI Narrative ANTONY SERRATO, is a 33 F who presents with a 1 day history of right upper quadrant abdominal pain. Patient states she has been to the ED multiple times within the 2 months for same symptoms of right upper quadrant pain/discomfort. She has been diagnosed with cholelithiasis. She was referred to Dr. Dowling and Dr. Howe during each of her ER visits. She has yet to follow-up with either of those two surgeons due to her having a younger child and her work schedule. She notes last night eating a cheeseburger for dinner. She notes at 1:00 AM, she woke up with right upper quadrant pain. She notes nausea associated with the pain. She notes the pain went into her back. She felt as though she was having a contraction. She also noted bloating. She states she has been eating smaller portion sizes. She has not been avoiding fatty, greasy foods. Patient notes a previous history of 2 c-sections with her most recent being 1 1/2 years ago. She denies any cardiac or pulmonary diseases. She is a 1 ppd smoker. She denies any illicit drugs or alcohol use. She is not on any weight loss medications or blood thinners. RUQ u/s was obtained in the ED demonstrating a mildly thickened gallbladder wall and a dilated, 8mm, CBD. Cholelithiasis is also seen. White is normal, 11.0 and liver enzymes are unremarkable. Her lipase is slightly elevated, 148. [facility] Medical History (Updated 12/29/23 @ 10:52 by La Cole) Vapes nicotine containing substance Bipolar 1 disorder Physical exam, pre-employment Home Medications ?Medication ?Instructions ?Recorded ?Last Taken ?Type aripiprazole 5 mg tablet (Abilify) 5 mg PO QHS 12/07/23 Unknown History ondansetron 4 mg disintegrating 4 mg PO TID PRN nausea and 12/15/23 Unknown Rx tablet vomiting #21 tabs Allergy/AdvReac Type Severity Reaction Status Date / Time No Known Allergies Allergy Verified 12/29/23 03:52 Surgical History Previous section Social History Smoking Status: Current every day smoker tobacco type: e-cigarettes ROS Constitutional Constitutional: Reports systems reviewed and no addt'l complaints, except as documented Eyes Eyes: Reports systems reviewed and no addt'l complaints, except as documented ENT HEENT: Reports systems reviewed and no addt'l complaints, except as documented Cardiovascular Cardiovascular: Reports systems reviewed and no addt'l complaints, except as documented Respiratory/Chest Respiratory/Chest: Reports systems reviewed and no addt'l complaints, except as documented Gastrointestinal Gastrointestinal: Reports systems reviewed and no addt'l complaints, except as documented Genitourinary Genitourinary: Reports systems reviewed and no addt'l complaints, except as documented Musculoskeletal Musculoskeletal: Reports systems reviewed and no addt'l complaints, except as documented Integumentary Integumentary: Reports systems reviewed and no addt'l complaints, except as documented Neurologic Neurologic: Reports systems reviewed and no addt'l complaints, except as documented Psychiatric Psychiatric: Reports systems reviewed and no addt'l complaints, except as documented Endocrine Endocrinology: Reports systems reviewed and no addt'l complaints, except as documented Hematologic/Lymphatic Hematologic/Lymphatic: Reports systems reviewed and no addt'l complaints, except as documented Allergic/Immunologic Allergic/Immunologic: Reports systems reviewed and no addt'l complaints, except as documented Vital Signs Vital Signs Vital Signs: 12/29/23 03:52 12/29/23 05:51 12/29/23 07:00 Temperature 97.6 F L Temperature Source Oral Pulse Rate 79 74 78 Respiratory Rate 16 16 18 Blood Pressure 121/74 H 102/63 149/81 H Blood Pressure Mean 89 76 103 Blood Pressure Source Blood Pressure Position Blood Pressure Location Pulse Ox 98 98 98 Oxygen Delivery Method Room Air Room Air Room Air 12/29/23 08:59 12/29/23 09:32 12/29/23 10:28 Temperature 98 F 97.0 F L Temperature Source Oral Pulse Rate 78 71 68 Respiratory Rate 18 18 16 Blood Pressure 102/63 99/64 90/59 L Blood Pressure Mean 76 75 69 Blood Pressure Source Monitor Blood Pressure Position Semi-Fowlers Blood Pressure Location Right Arm Pulse Ox 98 98 98 Oxygen Delivery Method Room Air Room Air Weight Weight: 182 lb 12.8 oz Body Mass Index (BMI) 31.4 Physical Exam Const alert, oriented x3 and no apparent distress HEENT normocephalic and head/scalp atraumatic Eyes PERRL Neck full ROM Resp normal respiratory effort and clear to auscultation bilaterally Cardio regular rate and regular rhythm GI GI Narrative: Abdomen- right upper quadrant pain/tenderness with palpation. Hypoactive bowel sounds. Positive Gilmore's sign. no CVA tenderness Back/Spine no CVA tenderness Extremity normal to inspection Skin no rashes or lesions noted Neuro no focal motor deficits and no sensory deficits noted Psych mental status grossly normal Results Lab / Micro Data 12/29/23 04:05 12/29/23 04:05 Labs: Laboratory Results - last 24 hr 12/29/23 04:05: WBC 11.0, RBC 4.15 L, Hgb 12.5, Hct 38.9, MCV 93.7, MCH 30.1, MCHC 32.1, RDW Std Deviation 45.1 H, RDW Coeff of Janna 13.2, Plt Count 275, MPV 9.9, Immature Gran % (Auto) 0.400, Neut % (Auto) 56.5, Lymph % (Auto) 35.1, [place] % (Auto) 5.5, Eos % (Auto) 2.0, Baso % (Auto) 0.5, Absolute Neuts (auto) 6.2, Absolute Lymphs (auto) 3.86, Nucleated RBC % 0, Sodium 139, Potassium 3.7, Chloride 108 H, Carbon Dioxide 25.0, Anion Gap 6, BUN 13, Creatinine 0.78, Estim Creat Clear Calc 108.15, Est GFR (MDRD) Af Amer 109, Est GFR (MDRD) Non-Af 90, BUN/Creatinine Ratio 16.6, Glucose 102, Lactic Acid 0.8, Calcium 8.8, Total Bilirubin 0.20, AST 9 L, ALT 20, Alkaline Phosphatase 87, Total Protein 6.8, Albumin 3.7, Globulin 3.1, Albumin/Globulin Ratio 1.2, Lipase 148 H 12/29/23 08:11: Urine Color Yellow, Urine Clarity Sl. Cloudy, Urine pH 6.0, Ur Specific [place] 1.015, Urine Protein 15 H, Urine Glucose (UA) Normal, Urine Ketones Negative, Urine Occult Blood Negative, Urine Nitrite Negative, Urine Bilirubin Negative, Urine Urobilinogen Normal, Ur Leukocyte Esterase 25 H, Urine RBC 0 SEEN, Urine WBC 0-5 SEEN, Ur Squamous Epith Cells 0-5 SEEN, Amorphous Sediment 1+, Urine Bacteria 1+, Urine Mucus 0 SEEN, Urine Test Negative Imaging Radiology Impression Gallbladder Ultrasound 12/29/23 04:39 IMPRESSION: Cholelithiasis. Thickened gallbladder wall may be consistent with acute or chronic cholecystitis. Dilated common bile duct. Choledocholithiasis not excluded. Hepatomegaly with fatty infiltration. Electronically Signed: Pauline Gotti MD at 7:35 EDT , Assessment & Plan Assessment/Plan (1) Acute cholecystitis: PLAN: I am seeing this patient in conjunction with Dr. Lama. She has independently evaluated this patient. Patient has been to the ED multiple times with biliary colic symptoms. She has had multiple images noting positive for cholelithiasis. Patient has been referred multiple times to a general surgeon and has failed to make an outpatient appointment. Patient's WBC are normal along with her liver enzymes. Her CBD is dilated and lipase is slightly elevated. I have discussed with the patient, although they are not specifically seeing a stone within the patient's duct on ultrasound, her symptoms may be consistent with the passing of a stone through the common bile duct. I have discussed this patient with Dr. Lama. We will plan to admit patient to med/surg floor for pain control, IV fluids, IV antibiotics and surgery. Dr. Lama will plan to perform a laparoscopic cholecystectomy with intraoperative cholangiogram tomorrow around 10:30. Procedure details, risks and benefits have been explained. I will also place the patient on a proton pump inhibitor during her admission. She will be on a clear liquid diet until midnight and then made NPO. Patient has had the opportunity to ask and have questions answered. Patient verbally understands and agrees with the plan. Thank you for allowing us to participate in this patient's care. Charges/Coding Visit Charges Inpatient E&M: 16106 Init Hosp L2 Documented by User: Dr. Adrianne Lama MD 12/29/23 13:08 HPI - General General Date of Admission: 12/29/23 [facility] Medical History (Updated 12/29/23 @ 10:52 by La Cole) Vapes nicotine containing substance Bipolar 1 disorder Physical exam, pre-employment Home Medications ?Medication ?Instructions ?Recorded ?Last Taken ?Type aripiprazole 5 mg tablet (Abilify) 5 mg PO QHS 12/07/23 Unknown History ondansetron 4 mg disintegrating 4 mg PO TID PRN nausea and 12/15/23 Unknown Rx tablet vomiting #21 tabs Allergy/AdvReac Type Severity Reaction Status Date / Time No Known Allergies Allergy Verified 12/29/23 03:52 Surgical History Previous section Social History Smoking Status: Current every day smoker tobacco type: e-cigarettes Results Lab / Micro Data 12/29/23 04:05 12/29/23 04:05 Assessment & Plan Assessment/Plan (1) Acute cholecystitis: PLAN: I am seeing this patient in conjunction with Dr. Lama. She has independently evaluated this patient. Patient has been to the ED multiple times with biliary colic symptoms. She has had multiple images noting positive for cholelithiasis. Patient has been referred multiple times to a general surgeon and has failed to make an outpatient appointment. Patient's WBC are normal along with her liver enzymes. Her CBD is dilated and lipase is slightly elevated. I have discussed with the patient, although they are not specifically seeing a stone within the patient's duct on ultrasound, her symptoms may be consistent with the passing of a stone through the common bile duct. I have discussed this patient with Dr. Lama. We will plan to admit patient to med/surg floor for pain control, IV fluids, IV antibiotics and surgery. Dr. Lama will plan to perform a laparoscopic cholecystectomy with intraoperative cholangiogram tomorrow around 10:30. Procedure details, risks and benefits have been explained. I will also place the patient on a proton pump inhibitor during her admission. She will be on a clear liquid diet until midnight and then made NPO. Patient has had the opportunity to ask and have questions answered. Patient verbally understands and agrees with the plan. Thank you for allowing us to participate in this patient's care. Addendum: Agree with Leticia Landry note. Patient seen and examined. Discussed procedure with patient. Reviewed the anatomy with the patient and discussed the procedure: laparoscopic cholecystectomy with possible cholangiograms, possible open. Review risks including but not limited to bleeding, infection, hernia, bile leak, retained gallstones requiring another procedure ERCP- Endoscopic Retrograde Cholangiopancreatography, injury to another organ (bile ducts, common bile duct, small bowel, etc.) and conversion to an open procedure. All questions were answered. Adrianne Lama M.D. Pager: [phone] [facility] [address] [place] [address] [place] [address] Office: [phone]
[2023-12-29] MEDS: 0.9% Normal Saline (1000mL) 1,000 ML 100 ML IV ×2 (11:29→21:57)
[2023-12-29] MEDS: Pantoprazole Sodium 40 MG in 0.9% Normal Saline (100mL MB+) 100 ML 330 MG IV (11:29)
[2023-12-29] MEDS: Piperacil/Tazobactam 3.375 GM in 0.9% Normal Saline (50mL MB+) 50 ML IV ×2 (15:01→21:59)
[2023-12-29] MEDS: HYDROmorphone 1 MG/ML Syringe IV (18:18)
[2023-12-29] MEDS: Acetaminophen 325 MG Tablet 650 MG PO (22:00)
[2023-12-29] MEDS: oxyCODONE 5 MG Tablet PO (22:01)
[2023-12-30] VITALS (18 sets, daily range): BP systolic 86–112; BP diastolic 48–77; PULSE 63–104; RESP 14–18; TEMP 36.4–37.2; O2SAT 94–100; BMI 31.1; BMI 31.4
[2023-12-30] MEDS: Piperacil/Tazobactam 3.375 GM in 0.9% Normal Saline (50mL MB+) 50 ML IV (06:50)
[2023-12-30] MEDS: 0.9% Normal Saline (1000mL) 1,000 ML 100 ML IV (06:55)
[2023-12-30 07:20] LABS: Absolute Lymphocyte Count 3.01 X10^3/uL (0.83-4.51); Absolute Neutrophil Count 2.6 X10^3/uL (2.0-7.7); Basophil# 0.04 X10^3/uL; Basophil% 0.7 % (0-1); Eosinophils% 3.3 % (0-5); Hematocrit 35.5 % (37-47); Hemoglobin 11.3 g/dL (12.0-15.0); Lymphocyte # 3.01 X10^3/ul (0.83-4.51); Lymphocyte % 49.3 % (19-41); Mean Corp Hgb Conc 31.8 g/dL (32-36); Mean Corpuscular Hgb 30.3 pg (27.0-32.0); Mean Corpuscular Volume 95.2 fL (81-99); Mean Platelet Vol. 9.6 fl (6.2-12.0); Monocyte# 0.29 X10^3/uL; Monocyte% 4.7 % (0-10); NRBC Flagged by Analyzer 0 % (0-5); Neutrophil # 2.55 X10^3/uL (2.7-7.7); Neutrophil % 41.7 % (47-70); Platelet Count 222 K/mm3 (150-450); RBC Distribution Width CV 13.4 % (11.6-14.6); RBC Distribution Width SD 47.2 fl (35.1-43.9); Red Blood Count 3.73 M/mm3 (4.2-5.4); White Blood Count 6.1 K/mm3 (4.4-11.0)
--- NOTE | 2023-12-30 07:35 | PCM.PN.SRG ---
Subjective Subjective Patient is evaluated resting comfortably in bed. She notes having minimal amount of pain/discomfort. She denies nausea, vomiting. Objective Data Objective Data Vital Signs: Vital Signs Temp Pulse Resp BP Pulse Ox O2 Del Method 97.6 F L 66 18 86/56 L 100 Room Air 12/30/23 04:00 12/30/23 04:00 12/30/23 04:00 12/30/23 04:00 12/30/23 04:00 12/30/23 04:00 Oxygen Delivery Method Room Air Weight: 182 lb 12.8 oz Body Mass Index (BMI) 31.4 Intake & Output: Intake and Output for Last 24 Hours 12/28/23 12/29/23 12/30/23 23:59 23:59 23:59 Intake Total 2640 / 3440 1746.67 / 1746.67 Balance 2640 / 3440 1746.67 / 1746.67 Lab / Micro Data 12/30/23 07:04 12/30/23 07:04 Labs: Laboratory Results - last 24 hr 12/29/23 08:11: Urine Color Yellow, Urine Clarity Sl. Cloudy, Urine pH 6.0, Ur Specific [place] 1.015, Urine Protein 15 H, Urine Glucose (UA) Normal, Urine Ketones Negative, Urine Occult Blood Negative, Urine Nitrite Negative, Urine Bilirubin Negative, Urine Urobilinogen Normal, Ur Leukocyte Esterase 25 H, Urine RBC 0 SEEN, Urine WBC 0-5 SEEN, Ur Squamous Epith Cells 0-5 SEEN, Amorphous Sediment 1+, Urine Bacteria 1+, Urine Mucus 0 SEEN, Urine Test Negative 12/30/23 07:04: WBC 6.1, RBC 3.73 L, Hgb 11.3 L, Hct 35.5 L, MCV 95.2, MCH 30.3, MCHC 31.8 L, RDW Std Deviation 47.2 H, RDW Coeff of Janna 13.4, Plt Count 222, MPV 9.6, Immature Gran % (Auto) 0.300, Neut % (Auto) 41.7 L, Lymph % (Auto) 49.3 H, [place] % (Auto) 4.7, Eos % (Auto) 3.3, Baso % (Auto) 0.7, Absolute Neuts (auto) 2.6, Absolute Lymphs (auto) 3.01, Nucleated RBC % 0 Radiography Diagnostic Testing: Radiology Impression Gallbladder Ultrasound 12/29/23 04:39 IMPRESSION: Cholelithiasis. Thickened gallbladder wall may be consistent with acute or chronic cholecystitis. Dilated common bile duct. Choledocholithiasis not excluded. Hepatomegaly with fatty infiltration. Electronically Signed: Pauline Gotti MD at 7:35 EDT Reading Location ID and State: [address] [place] [address] Tel , Service support , Physical Exam GI GI Narrative: Abdominal- soft, slight tenderness to palpation of the right upper quadrant Assessment & Plan Assessment/Plan (1) Acute cholecystitis: PLAN: Dr. Lama will plan to perform a laparoscopic cholecystectomy with IOC today at 10:30 Labs reviewed we will continue to monitor this patient Charges/Coding Visit Charges Inpatient E&M: 69503 Subs Hosp L1 (pre-op; no charge)
[2023-12-30 08:29] LABS: ALB/GLOB Ratio 1.1 RATIO (0.9-2.4); AST(SGOT) 13 U/L (15-37); Alanine Aminotransfer ALT/SGPT 24 U/L (13-56); Albumin, Serum 2.9 g/dL (3.2-5.0); Alkaline Phosphatase 69 U/L (45-117); Anion Gap 4 (5-15); BUN 6 mg/dL (7-18); BUN/Creat Ratio 7.2 RATIO (10-20); Calcium,Total 8.3 mg/dL (8.5-10.1); Chloride 111 mmol/L (98-107); Creatinine, Serum 0.84 mg/dL (0.55-1.02); EST Glomerular Filtration Rate 83 mL/min (>60); Est Glom Filt Rate - Afr Amer 101 mL/min (>60); Estimated Creatinine Clearance 99.23 ml/min; Globulin 2.7 g/dL (2.2-4.2); Glucose 92 mg/dL (74-106); Lipase 36 U/L (13-75); Protein, Total 5.6 g/dL (6.4-8.2); Sodium Level 141 mmol/L (136-145)
--- NOTE | 2023-12-30 09:29 | PRE.ANES_ITS ---
ASA Classification* ASA Classification ASA Classification: 2 Assessment & Plan Anesthesia* Anesthesia Assessment Anesthesia Assessment: Discussed sedation and/or anesthesia options, risks, benefits, and alternatives with patient/parents/legal guardian/POA. Questions invited. The patient/parents/legal guardian/POA seems to understand and agrees to proceed with anesthesia plan. Reviewed the physical assessment, medical history, allergy history and patient home medications list prior to surgery/procedure/anesthetic and documented any changes. Performed airway and anesthesia risk assessments. Anesthesia Type Anesthesia Type: General (see written pre anesthesia record for full assessment) Anesthesia Focused Assessment* Temperature: 97.6 F Pulse Rate: 83 Blood Pressure: 90/56 Respiratory Rate: 16 Pulse Ox: 98 Airway Assessment Mouth opens: >3 cm Mallampati Score: II Focused Labs Anesthesia Preop lab: CBC WBC 6.1 K/mm3 (4.4-11.0) 12/30/23 07:04 RBC 3.73 M/mm3 (4.2-5.4) L 12/30/23 07:04 Hgb 11.3 g/dL (12.0-15.0) L 12/30/23 07:04 Hct 35.5 % (37-47) L 12/30/23 07:04 Plt Count 222 K/mm3 (150-450) 12/30/23 07:04 CHEMISTRY Potassium 4.0 mmol/L (3.5-5.1) 12/30/23 07:04 Sodium 141 mmol/L (136-145) 12/30/23 07:04 BUN 6 mg/dL (7-18) L 12/30/23 07:04 Creatinine 0.84 mg/dL (0.55-1.02) 12/30/23 07:04 Glucose 92 mg/dL (74-106) 12/30/23 07:04 TSH 0.58 uIU/mL (0.358-3.74) 10/06/15 11:49 COAG Urine Test Negative Negative 12/29/23 08:11 Pre-Assessment Diagnosis/Proposed Procedure Planned Operative Procedure(s): lap eduardo Anesthesia History Anesthesia History - torch straightener: Anesthesia History - torch straightener Hx Hospitalization Any Problems With Anesthesia No 12/30/23 05:10 Cholinesterase deficiency No 12/30/23 05:10 You/Your Family Experience No 12/30/23 05:10 fever (hyperthermia) with Relationship Recent Exposure to Contagious No 12/30/23 05:10 Disease Does patient have nerve No 12/30/23 05:10 stimulator Patient instructed to have device shut off --Does patient have Pacemaker No 12/30/23 08:00 or ICD? When Was Last Pacemaker Check QUESTION #4 FULL TEXT: You/Your Family Experience fever (hyperthermia) with Anesthesia Last Oral Intake Last Oral intake: Last Oral Intake NPO since 00:00 12/30/23 08:00 Meds taken in AM with sips of No 12/30/23 08:00 water? Meds patient instructed to take am of surgery PONV PONV - torch straightener: PONV - torch straightener Female HX of Motion Sickness HX of N/V After Surgery Non-Smoker Duration of Surgery greater than 60 minutes Number of Risk Factors PONV Score Height & Weight Height & Weight: Anesthesia: Height & Weight Height 5 ft 4 in 12/30/23 08:00 Weight: 82.917 kg 12/30/23 08:00 Body Mass Index (BMI) 31.4 12/30/23 08:00 Respiratory Assessment Respiratory Assessment - torch straightener: Respiratory Tract Infection Hx - torch straightener Hx Respiratory Tract Infection No 12/30/23 05:10 STOP Sleep Apnea STOP Sleep Apnea - torch straightener: STOP Sleep Apnea - torch straightener Hx Hypertension No 12/29/23 10:28 Hx Sleep Apnea No 12/29/23 10:28 CPAP BIPAP Do you snore loudly (louder No 12/29/23 10:28 than talking or can be heard Do you often feel tired/ No 12/29/23 10:28 fatigued/ sleepy during daytime? Has anyone observed you stop No 12/29/23 10:28 breathing during sleep? STOP Results Negative 12/29/23 10:28 QUESTION #5 FULL TEXT : Do you snore loudly (louder than talking or can be heard through closed doors)? 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 Specify any problems Hx of Preganancy in last 3 N/A 12/29/23 10:28 Months Nurse Filling Out Transfusion AHAGGERTY 12/29/23 10:28 & Questions: Date: 12/29/23 12/29/23 10:28 Time: 10:39 12/29/23 10:28 Patient unable to answer at this time (ie. confused, unrespo /Reproduction History /Reproductive History - torch straightener: /Reproductive Hx- torch straightener Hx Now No 12/30/23 05:10 Gestational Age (in weeks): EDC: Hx Hx Para Hx Section SAB No 12/30/23 05:10 Active Medications Active Medications: Current Medications Generic Name Dose Route Start Last Admin Trade Name Freq PRN Reason Stop Dose Admin Acetaminophen 650 mg 12/29/23 10:40 12/29/23 22:00 Acetaminophen 325 Mg Tablet PO 650 mg Q6H PRN PRN Administration Pain 1-10 Or Fever >100.7 Hydromorphone HCl 0.5 - 1 mg 12/29/23 10:40 12/29/23 18:18 Hydromorphone 1 Mg/Ml Syringe IV 0.5 mg Q3H PRN PRN Administration Pain Score 6-10 Sodium Chloride 1,000 mls @ 100 mls/hr 12/29/23 10:40 12/30/23 06:55 IV 100 mls/hr .Q10H LEATHA Administration Piperacillin Sod/Tazobactam 50 mls @ 12.5 mls/hr 12/29/23 15:00 12/30/23 06:50 Sod 3.375 gm/ Sodium Chloride IV 12.5 mls/hr Q8 LEATHA Administration Pantoprazole Sodium 40 mg/ 110 mls @ 330 mls/hr 12/29/23 10:45 12/29/23 12:21 Sodium Chloride IV Infused Q24 LEATHA Infusion Sodium Chloride 250 mls @ 15 mls/hr 12/30/23 06:56 IV .[id number] PRN Additional IVPB Infusion Sodium Chloride 250 mls @ 15 mls/hr 12/30/23 06:56 IV .[id number] PRN Saline Flush Nicotine 21 mg 12/29/23 11:00 12/29/23 11:29 Nicotine 21 Mg Patch TD 21 mg DAILY LEATHA Administration Ondansetron HCl 4 mg 12/29/23 10:40 Ondansetron 4 Mg/2 Ml Vial IV Q8H PRN PRN NAUSEA/VOMITING Oxycodone HCl 5 mg 12/29/23 10:40 12/29/23 22:01 Oxycodone 5 Mg Tablet PO 5 mg Q4H PRN PRN Administration Pain Score 4-10 Sodium Chloride 10 - 40 ml 12/29/23 10:44 0.9% Saline Lock 10 Ml Syringe IV UD PRN SALINE FLUSH PFSH Medical History Vapes nicotine containing substance Bipolar 1 disorder Physical exam, pre-employment Home Medications ?Medication ?Instructions ?Recorded ?Last Taken ?Type aripiprazole 5 mg tablet (Abilify) 5 mg PO QHS 12/07/23 Unknown History ondansetron 4 mg disintegrating 4 mg PO TID PRN nausea and 12/15/23 Unknown Rx tablet vomiting #21 tabs Allergy/AdvReac Type Severity Reaction Status Date / Time No Known Allergies Allergy Verified 12/29/23 03:52 Surgical History Previous section Social History Smoking Status: Current every day smoker tobacco type: e-cigarettes Review of Systems (Anesthesia) ROS Narrative System reviewed and no additional complaints, except as documented.
--- NOTE | 2023-12-30 09:30 | RAD_ITS ---
INDICATION: PAIN EXAMINATION/TECHNIQUE: Cine intraoperative films are presented for evaluation. Total Fluoroscopic Time: 15.6 seconds Fluoroscopic Images: Cine images were obtained. Radiation dose: 5.89 mGy. COMPARISON: No relevant prior comparison study available FINDINGS: Constant filling defect is seen in the distal common bile duct proximal to the ampulla. No evidence of fracture. Mildly prominent bile duct. There is free passage into the duodenum. RAD/Cholangiogram/ O R,Initial IMPRESSION: Filling defect in the common bile duct which may reflect retained stone. Tumor cannot be excluded. Electronically Signed: Wenceslao Pugh MD at 15:54 EDT ,
[2023-12-30] MEDS: 0.9% Normal Saline (1000mL) 1,000 ML 15 ML IV (09:39)
--- NOTE | 2023-12-30 10:30 | GALL_PTH ---
PATIENT: ANTONY SERRATO LOC: MS3 U#:[id number] AGE/SX: 33/F ROOM: MI322 RE12/29/[address]: Dr. Adrianne Lama MD : 1990 BED: 1 DIS: 12/31/2023 SPEC #: [id number] RECD: 12/30/23 13:32 STATUS: GLENN REToño #: [id number] SIMI: 12/30/23 10:[address]: Adrianne Lama DEPT: SURGICAL PATHOLOGY RECD BY: Zana Leonard ENTERED: 12/31/23 09:16 SP TYPE: CHANTELL SHAH DR: No Primary Care Phys Tissues: Gallbladder, NOS Procedures: Surgery Specimen Level III HEADER OPERATION: Laparoscopic, cholecystectomy with IOC PRE-OP DIAGNOSIS: Acute cholecystitis TISSUE SUBMITTED: Gallbladder MICROSCOPIC DIAGNOSIS Gallbladder, cholecystectomy: Acute and chronic cholecystitis, cholelithiasis and cholesterolosis. SJ/mr 01/01/2024 MICROSCOPIC DESCRIPTION Slides are reviewed. GROSS DESCRIPTION Received is one container labeled with the patient's name and designated gallbladder. The specimen consists of a gallbladder measuring 11.0 cm in length and up to 4.0 cm in diameter. The external surface is pink-roberts, smooth and glistening for the most part. Focally it is granular, hemorrhagic and contains cautery artifact. The gallbladder contains green-yellow mucoid bile and one ovoid greenish-yellow stone measuring in aggregate 1.2 cm in greatest dimension. The mucosa is bile-stained and without any mass lesions. The gallbladder wall measures up to 0.5 cm in thickness. Sections of the gallbladder wall reveal edematous cut surfaces. The mucosa also shows several yellowish streaks consistent with cholesterolosis. Director Of Retail Operations sections from the gallbladder and the cystic duct are submitted in one cassette. / NALLELY: 12/31/2023 TC:2 CPT: 33273
[2023-12-30] MEDS: Pantoprazole Sodium 40 MG in 0.9% Normal Saline (100mL MB+) 100 ML IV (10:50)
[2023-12-30] MEDS: Bupivacaine Mpf 0.5% 30 ML VIAL (11:15)
--- NOTE | 2023-12-30 11:39 | OP.PCM_ITS ---
Report of Operation Date of Procedure: 12/30/23 Pre-Operative Diagnosis: Acute cholecystitis Post-Operative Diagnosis: Same Surgery/Procedure Performed:: Laparoscopic cholecystectomy with cholangiograms Surgeon: Adrianne Lama commercial relationship manager: Kevon Torres Type of Anesthesia: General/Supplemental Anesthesiologist: Darien Villarreal Special Medications: Zosyn 3.375 g IV for acute cholecystitis on the floor Specimen's removed: Gallbladder Estimated Blood Loss (mL): 10 cc Description of Procedure: Indications: this is a 33 year-old female who developed abdominal pain/nausea/vomiting and on workup was found to have acute cholecystitis, cholelithiasis, with a normal common bile duct. Laparoscopic cholecystectomy was elected. Description procedure: The patient was placed on operating table in supine position. A timeout was completed verifying correct patient, procedure, site, position and special equipment prior to beginning procedure. General Anesthesia was induced. The abdomen was prepped and draped in usual sterile fashion. An incision was made in the natural skin line above the umbilicus. The fascia was elevated and incised. The peritoneum was elevated and incised. Entry into the peritoneum was confirmed visually and no bowel was noted in the vicinity of the incision. Quarles trocar was placed. The abdomen was insufflated with carbon dioxide to a pressure of 12-15 mmHg. Patient tolerated insufflation well. The laparoscope was then inserted and abdomen inspected. No injuries from initial trocar placement were noted. Additional trochars were then inserted in the following locations 5 mm trocar in the epigastrium and 2 more 5 mm trochars along the right costal margin. The abdomen was inspected no abnormalities were found. The table is placed in reverse Trendelenburg position with the right side up. The dome of the gallbladder was grasped with atraumatic grasper passed through the lateral port and retracted over the dome of the liver. Infundibulum was then grasped with atraumatic grasper through the midclavicular port and retrac farzad to the right lower quadrant. This maneuver exposed Calot's triangle. The peritoneum overlying the gallbladder infundibulum was then incised and cystic duct and artery identified and circumferentially dissected. Hall catheter was used for cholangiograms. The cholangiogram showed good filling of the common bile duct into the duodenum with no filling defects, good filling of the right and left bile ducts as well. The cystic duct and artery were then doubly clipped and divided close to the gallbladder. The gallbladder then dissected from its peritoneal attachments by electrocautery. Hemostasis was checked and the gallbladder and contained stones were removed using the endoscopic retrieval bag through the umbilical port. The gallbladder is passed off table as specimen. The gallbladder fossa was irrigated with saline and hemostasis obtained. There is no evidence of bleeding from the gallbladder fossa or cystic artery leakage of bile from the cystic duct stump. Secondary trochars removed under direct vision. No bleeding was noted the trocar sites. The laparoscope was withdrawn and umbilical trocar removed. The abdomen was allowed to collapse. The fascia of the 12 mm trocar was closed with a [id number] 0 Vicryl suture. The skin was closed with sutures of 4-0 Monocryl and Steri-Strips. The patient was extubated. The patient tolerated procedure well and was taken to the postanesthesia care unit in stable condition. Complications none
--- NOTE | 2023-12-30 11:41 | DCINST_ITS ---
Discharge Instructions Diet Discharge Diet: Light diet - advance as tolerated Activity Discharge Activity: May Not Drive (while taking narcotic pain medications.) May shower in (days): 1 Lifting Restrictions: no lifting >20 lbs x 2 wks, no strenuous exercise for 4 wks Dressing / Incision Call your doctor if your incision/area has: Continuous Slow Oozing, Sudden Increased Bleeding, Increased Pain/ Swelling, Increased Redness, Foul Smelling Discharge and Swelling at the incision site Call your doctor if you observe: Fever of 101 or Higher Remove Dressing in: 2 days Cleanse incision/area with: Soap & Water Additional Dressing/Incision Instructions:: Steri-Strips will fall off in 7 to 10 days, if they do not fall off okay to remove after 10 days. Follow Up Care Please Follow Up With: Adrianne Lama MD When: Call the office for a follow-up appointment 2 weeks; after 5 PM and on the weekends call [phone] with any concerns. Test Results: Test results from this visit will be discussed in further detail at your follow- up appointment, if applicable. Discharge Plan Admission Admit Date/Time: 12/29/23 10:40 Attending Provider: Adrianne Lama Primary Care Provider: Kristopher PhysicianDawna Primary Instructions Additional Instructions / Restrictions: Okay to take ibuprofen 400-600 mg PO q6hr PRN along with the Percocet. Avoid Tylenol since there is already Tylenol in the Percocet. Take all pain meds with food. Percocet can cause constipation recommend taking daily stool softener (i.e. Colace/docusate) while taking the pain meds. Recommend starting some MiraLAX in 1 to 2 days if no bowel movement. If still no bowel movement the following day recommend taking magnesium citrate half the bottle and waiting 4-6 hours if still no results take the other half the bottle. Discharge Orders/Prescriptions Prescriptions: New oxycodone-acetaminophen 5-325 mg tablet 1 - 2 tab PO Q6H PRN (Reason: pain) 3 Days Qty: 14 0RF Continued ondansetron 4 mg tablet,disintegrating 4 mg PO TID PRN (Reason: nausea and vomiting) Qty: 21 0RF aripiprazole [Abilify] 5 mg tablet 5 mg PO QHS Referrals / Follow Up: Care PhysicianDawna Primary [Primary Care Provider] - Disposition Disposition (needs filled in before D/C Order can be placed): Home, Self Care
[2023-12-30] MEDS: Lactated Ringers 1,000 ML 15 ML IV (12:00)
--- NOTE | 2023-12-30 12:00 | PCM.POST.ANE ---
Anesthesia: Postop Eval I Current Vital Signs Temperature: 97.7 F Pulse Rate: 97 Blood Pressure: 112/72 Respiratory Rate: 18 Pulse Ox: 99 Oxygen Delivery Method: Room Air Assessment Airway patent: Yes Spontaneous unlabored respirations: Yes Mental status: Awake nausea: No Vomiting: No Anesthesia Complication: No Fluid Hydration Crystalloid volume administer (ml): 900 Total IV fluid infused: 900 Progress Note Anesthesia document: Postop Eval 1 completed: Yes
[2023-12-30] MEDS: Ketorolac 15 MG/ML Vial IV ×2 (13:02→20:44)
[2023-12-30] MEDS: HYDROmorphone 1 MG/ML Syringe IV (14:14)
--- NOTE | 2023-12-30 14:35 | CASEMGMT ---
Noted dc order placed, RN CM into pt room. Pt sitting up in bed eating jello. Pt denies having a PCP. Provided pt with a local healthcare directory pamphlet. Pt is currently [address] at [address] Pt states they are working with her for housing and she was actively looking for apts on her own. Pt denies need for any resources regarding this. Updated SW. Pt denies homegoing needs as she reports she is I in ADLs/IADLs.
--- NOTE | 2023-12-30 16:23 | PCM.POSTANE2 ---
Anesthesia Postop Eval I Sum Postop Eval Completion status Anesthesia document: Postop Eval 1 completed: Yes Anesthesia Postop Eval I Summary Anesthesia Postop Eval I Summary: Anesthesia Postop Eval I: Assessment Summary Airway patent Yes 12/30/23 12:01 [email or web address] Spontaneous unlabored Yes 12/30/23 12:01 [email or web address] respirations Mental status Awake 12/30/23 12:01 [email or web address] nausea No 12/30/23 12:01 [email or web address] Vomiting No 12/30/23 12:01 [email or web address] Anesthesia Postop Eval I: Fluid Summary Crystalloid volume administer 900 12/30/23 12:01 [email or web address] (ml) Colloids volume administered ( ml) Blood Product volume administered (ml) Total IV fluid infused 900 12/30/23 12:01 [email or web address] Anesthesia Postop Eval I: Summary Notes Anesthesia Complication No 12/30/23 12:01 [email or web address] Anesthesia Complication Comment: Post-operative progress note Anesthesia: Postop Eval II Evaluation Mental status: Awake and Calm Pain Level: 1 nausea: No Vomiting: No Complications Anesthesia Complication: No
[2023-12-30] MEDS: 0.9% Saline Lock 10 ML Syringe IV (20:44)
[2023-12-31 01:07] VITALS: BP 105/53; PULSE 68; RESP 16; TEMP 36.4; O2SAT 99
[2023-12-31] MEDS: 0.9% Normal Saline (1000mL) 1,000 ML 80 ML IV (01:09)
[2023-12-31] MEDS: Acetaminophen 325 MG Tablet 650 MG PO (01:09)
[2023-12-31] MEDS: 0.9% Saline Lock 10 ML Syringe IV ×2 (01:09→06:01)
[2023-12-31] MEDS: Ketorolac 15 MG/ML Vial IV (05:46)
[2023-12-31 05:49] VITALS: BP 88/65; PULSE 67; RESP 16; TEMP 36.6; O2SAT 100
[2023-12-31 05:52] VITALS: BMI 32.8
[2023-12-31] MEDS: oxyCODONE 5 MG Tablet PO (07:18)
[2023-12-31 07:22] LABS: Absolute Lymphocyte Count 2.69 X10^3/uL (0.83-4.51); Absolute Neutrophil Count 10.3 X10^3/uL (2.0-7.7); Basophil# 0.02 X10^3/uL; Basophil% 0.1 % (0-1); Eosinophil# 0.02 X10^3/uL; Eosinophils% 0.1 % (0-5); Hematocrit 34.7 % (37-47); Hemoglobin 11.1 g/dL (12.0-15.0); Lymphocyte # 2.69 X10^3/ul (0.83-4.51); Lymphocyte % 19.4 % (19-41); Mean Corpuscular Hgb 30.2 pg (27.0-32.0); Mean Corpuscular Volume 94.6 fL (81-99); Mean Platelet Vol. 10.1 fl (6.2-12.0); Monocyte# 0.74 X10^3/uL; Monocyte% 5.3 % (0-10); NRBC Flagged by Analyzer 0 % (0-5); Neutrophil % 74.6 % (47-70); Platelet Count 254 K/mm3 (150-450); RBC Distribution Width CV 13.1 % (11.6-14.6); RBC Distribution Width SD 45.1 fl (35.1-43.9); Red Blood Count 3.67 M/mm3 (4.2-5.4); White Blood Count 13.8 K/mm3 (4.4-11.0)
--- NOTE | 2023-12-31 08:21 | PN.SURG_ITS ---
Subjective Subjective Patient is a 33 y/o F I am following s/p laparoscopic cholecystectomy. Patient notes her right upper quadrant pain has improved. She notes some discomfort in the RUQ. She denies nausea, vomiting, fever. Cholangiogram from yesterday is read as a possible retained stone or mass at the distal aspect of the common bile duct. Objective Data Objective Data Vital Signs: Vital Signs Temp Pulse Resp BP Pulse Ox O2 Del Method 97.8 F 67 16 88/65 L 100 Room Air 12/31/23 05:49 12/31/23 05:49 12/31/23 05:49 12/31/23 05:49 12/31/23 05:49 12/31/23 05:49 Oxygen Delivery Method Room Air Weight: 192 lb 3.889 oz Body Mass Index (BMI) 32.8 Intake & Output: Intake and Output for Last 24 Hours 12/29/23 12/30/23 12/31/23 23:59 23:59 23:59 Intake Total 2640 / 3440 3906.67 / 3906.67 390.67 / 390.67 Output Total 400 / 400 Balance 2640 / 3440 3906.67 / 3906.67 -9.33 / -9.33 Lab / Micro Data 12/31/23 07:09 12/30/23 07:04 Labs: Laboratory Results - last 24 hr 12/30/23 07:04: Sodium 141, Potassium 4.0, Chloride 111 H, Carbon Dioxide 26.0, Anion Gap 4 L, BUN 6 L, Creatinine 0.84, Estim Creat Clear Calc 99.23, Est GFR (MDRD) Af Amer 101, Est GFR (MDRD) Non-Af 83, BUN/Creatinine Ratio 7.2 L, Glucose 92, Calcium 8.3 L, Total Bilirubin 0.30, AST 13 L, ALT 24, Alkaline Phosphatase 69, Total Protein 5.6 L, Albumin 2.9 L, Globulin 2.7, Albumin/Globulin Ratio 1.1, Lipase 36 12/31/23 07:09: WBC 13.8 H, RBC 3.67 L, Hgb 11.1 L, Hct 34.7 L, MCV 94.6, MCH 30.2, MCHC 32.0, RDW Std Deviation 45.1 H, RDW Coeff of Janna 13.1, Plt Count 254, MPV 10.1, Immature Gran % (Auto) 0.500, Neut % (Auto) 74.6 H, Lymph % (Auto) 19.4, [place]eman % (Auto) 5.3, Eos % (Auto) 0.1, Baso % (Auto) 0.1, Absolute Neuts (auto) 10.3 H, Absolute Lymphs (auto) 2.69, Nucleated RBC % 0 Radiography Diagnostic Testing: Radiology Impression Cholangiogram 12/30/23 09:30 IMPRESSION: Filling defect in the common bile duct which may reflect retained stone. Tumor cannot be excluded. Electronically Signed: Wenceslao Pugh MD at 15:54 EDT , Physical Exam GI GI Narrative: Abdomen- soft, slight tenderness to palpation. Incisions c/d/i. No erythema or infection noted. Assessment & Plan Assessment/Plan (1) S/P laparoscopic cholecystectomy: PLAN: I am following this patient in conjunction with Dr. Lama. She will independently evaluate this patient. CBC reviewed, chemistry pending Decrease diet to clear liquids Will review cholangiogram with Dr. Lord and radiologist Discussed with the patient that if a retained stone is in question, she may need an ERCP with Dr. Lord We will update the patient once more answers are obtained Patient is very appreciative of her care We will continue to monitor this patient Charges/Coding Visit Charges Inpatient E&M: 69899 Subs Hosp L1 (no charge; post-op)
[2023-12-31 08:25] LABS: ALB/GLOB Ratio 1.1 RATIO (0.9-2.4); AST(SGOT) 115 U/L (15-37); Alanine Aminotransfer ALT/SGPT 137 U/L (13-56); Alkaline Phosphatase 79 U/L (45-117); Anion Gap 5 (5-15); BUN 5 mg/dL (7-18); BUN/Creat Ratio 5.7 RATIO (10-20); Calcium,Total 8.5 mg/dL (8.5-10.1); Chloride 110 mmol/L (98-107); Creatinine, Serum 0.87 mg/dL (0.55-1.02); EST Glomerular Filtration Rate 79 mL/min (>60); Est Glom Filt Rate - Afr Amer 96 mL/min (>60); Globulin 2.7 g/dL (2.2-4.2); Glucose 183 mg/dL (74-106); Potassium 3.8 mmol/L (3.5-5.1); Protein, Total 5.7 g/dL (6.4-8.2); Sodium Level 139 mmol/L (136-145)
[2023-12-31 08:36] LABS: Lipase 27 U/L (13-75)
[2023-12-31 08:37] VITALS: BP 100/57; PULSE 63; RESP 15; TEMP 36.6; O2SAT 97
[2023-12-31 08:44] VITALS: O2SAT 97
[2023-12-31 10:23] VITALS: O2SAT 97
--- NOTE | 2023-12-31 10:40 | PCM.DC.SUM ---
Providers Date of Admission: 12/29/23 Primary Care Physician: No Primary Care Phys Reason For Visit: ACUTE CHOLESYSTITIS Diagnosis Discharge Diagnosis (1) S/P laparoscopic cholecystectomy: Status: Acute Code(s): Z90.49 - Acquired absence of other specified parts of digestive tract Plan: I am following this patient in conjunction with Dr. Lama. She will independently evaluate this patient. CBC reviewed, chemistry pending Decrease diet to clear liquids Will review cholangiogram with Dr. Lord and radiologist Discussed with the patient that if a retained stone is in question, she may need an ERCP with Dr. Lodr We will update the patient once more answers are obtained Patient is very appreciative of her care We will continue to monitor this patient Medications at Discharge Home Medications aripiprazole 5 mg tablet (Abilify) 5 mg PO QHS 12/07/23 ondansetron 4 mg disintegrating tablet 4 mg PO TID PRN nausea and vomiting #21 tabs 12/15/23 oxycodone-acetaminophen 5 mg-325 mg tablet 1 - 2 tab PO Q6H PRN pain 3 days #14 tabs 12/30/23 Hospital Course Operations cholecystecomy Summary of Care Provided Hospital Course: Patient is a 33 y/o F who presented with RUQ abdominal pain. RUQ u/s was obtained demonstrating thickened gallbladder wall, cholelithiasis, dilated common bile duct consistent with acute cholecystitis. Dr. Lama performed a laparoscopic cholecystectomy with intraoperative cholangiogram on 12/30/23. Patient tolerated the procedure well. Cholangiogram was read as possible retained stone. Dr. Lama discussed this imaging with Radiologist and Dr. Lord, GI, who all agreed there is no filling defect. Patient's AST and ALT where slightly elevated secondary to recent procedure. Upon discharge, patient's pain was well controlled. She denies nausea, vomiting. She is tolerating a regular diet. She notes soreness at the incision sites. Discharge instructions were reviewed with the patient. Patent to follow-up with our office in 2 week. Medical Records Data Homelessness:: Sheltered Weight / BMI Weight Weight: 192 lb 3.889 oz Body Mass Index (BMI) 32.8 ABG / Lab / Microbiology Data 12/31/23 07:09 12/31/23 07:09 Laboratory: Laboratory Results - last 24 hr 12/31/23 07:09: WBC 13.8 H, RBC 3.67 L, Hgb 11.1 L, Hct 34.7 L, MCV 94.6, MCH 30.2, MCHC 32.0, RDW Std Deviation 45.1 H, RDW Coeff of Janna 13.1, Plt Count 254, MPV 10.1, Immature Gran % (Auto) 0.500, Neut % (Auto) 74.6 H, Lymph % (Auto) 19.4, Williamson % (Auto) 5.3, Eos % (Auto) 0.1, Baso % (Auto) 0.1, Absolute Neuts (auto) 10.3 H, Absolute Lymphs (auto) 2.69, Nucleated RBC % 0, Sodium 139, Potassium 3.8, Chloride 110 H, Carbon Dioxide 24.0, Anion Gap 5, BUN 5 L, Creatinine 0.87, Estim Creat Clear Calc 98.30, Est GFR (MDRD) Af Amer 96, Est GFR (MDRD) Non-Af 79, BUN/Creatinine Ratio 5.7 L, Glucose 183 H, Calcium 8.5, Total Bilirubin 0.40, AST 115 H, ALT 137 H, Alkaline Phosphatase 79, Total Protein 5.7 L, Albumin 3.0 L, Globulin 2.7, Albumin/Globulin Ratio 1.1, Lipase 27 Radiography Diagnostic Testing: Radiology Impression Cholangiogram 12/30/23 09:30 IMPRESSION: Filling defect in the common bile duct which may reflect retained stone. Tumor cannot be excluded. Electronically Signed: Wenceslao Pugh MD at 15:54 EDT , D/C Instructions Discharge Diet: Light diet - advance as tolerated May shower in (days): 1 Call your doctor if your incision/area has: Continuous Slow Oozing, Sudden Increased Bleeding, Increased Pain/ Swelling, Increased Redness, Foul Smelling Discharge and Swelling at the incision site Call your doctor if you observe: Fever of 101 or Higher Cleanse incision/area with: Soap & Water Additional Dressing/Incision Instructions: Steri-Strips will fall off in 7 to 10 days, if they do not fall off okay to remove after 10 days. Please Follow Up With: Adrianne Lama MD When: Call the office for a follow-up appointment 2 weeks; after 5 PM and on the weekends call [phone] with any concerns. Meaningful Use Info Meaningful Use Meaningful Use Diagnoses (Choose all that apply): None applicable Ischemic Stroke Statin Dosing Therapy Reference: STATIN DOSE THERAPY REFERENCE: * Patients > 75 years receive moderate or high dose statin therapy. * Patients 75 years or YOUNGER should receive HIGH intensity statin dose unless contraindicated. You will be required to document reason for non-treatment if statin daily dose does not meet guidelines. HIGH DOSE STATIN THERAPY DAILY Atorvastatin > than or = to 40 mg Rosuvastatin > than or = to 20 mg Amlodipine + Atorvastatin > than or = to 2.5/40 mg Ezetimibe + Simvastatin 10/80 mg Simvastatin 80mg Discharge Plan Admission Admit Date/Time: 12/29/23 10:40 Attending Provider: Adrianne Lama Primary Care Provider: Care Physician,No Primary Instructions Additional Instructions / Restrictions: Okay to take ibuprofen 400-600 mg PO q6hr PRN along with the Percocet. Avoid Tylenol since there is already Tylenol in the Percocet. Take all pain meds with food. Percocet can cause constipation recommend taking daily stool softener (i.e. Colace/docusate) while taking the pain meds. Recommend starting some MiraLAX in 1 to 2 days if no bowel movement. If still no bowel movement the following day recommend taking magnesium citrate half the bottle and waiting 4-6 hours if still no results take the other half the bottle. Discharge Orders/Prescriptions Prescriptions: New oxycodone-acetaminophen 5-325 mg tablet 1 - 2 tab PO Q6H PRN (Reason: pain) 3 Days Qty: 14 0RF Continued ondansetron 4 mg tablet,disintegrating 4 mg PO TID PRN (Reason: nausea and vomiting) Qty: 21 0RF aripiprazole [Abilify] 5 mg tablet 5 mg PO QHS Referrals / Follow Up: Care Physician,No Primary [Primary Care Provider] - Disposition Disposition (needs filled in before D/C Order can be placed): Home, Self Care Charges/Coding Visit Charges Inpatient E&M: 97688 Disch Hosp (no charge; post-op)
[2023-12-31 10:47] VITALS: BP 100/57; PULSE 63; RESP 16; TEMP 36.6; O2SAT 97
== END 2023-12-31 11:06 | disposition home or self-care (01) ==
LOC: ED 09:30 → MS3 12-30 09:52
PROVIDERS: Emergency Medicine; Physician Assistant; Admitting Provider Surgery; Emergency Provider Emergency Medicine; Visit Provider Surgery
PROC: (CPT 47610; principal; 2023-12-30 10:10)
DX: K80.66 Calculus of gallbladder and bile duct with acute and chronic cholecystitis without obstruction (principal); F31.9 Bipolar disorder, unspecified; F17.290 Nicotine dependence, other tobacco product, uncomplicated; Z79.899 Other long term (current) drug therapy
CPT/HCPCS: 47563; 00790; 36415; 74300; 76000; 76705; 80053; 81001; 81025; 83605; 83690; 85025; 88304; 94668; 96361; 96365; 96366; 96375; 96376; 99221; 99284; J7030; J7120; A4216; G0378; J2405

== ENCOUNTER → 2024-07-29 | Outpatient (CLI) | payer MEDICAID, SELFPAY ==
[2024-07-29 16:31] LABS: Absolute Lymphocyte Count 3.28 X10^3/uL (0.83-4.51); Absolute Neutrophil Count 3.2 X10^3/uL (2.0-7.7); Basophil# 0.05 X10^3/uL; Basophil% 0.7 % (0-1); Eosinophils% 2.8 % (0-5); Hematocrit 39.8 % (37-47); Hemoglobin 13.3 g/dL (12.0-15.0); Lymphocyte # 3.28 X10^3/ul (0.83-4.51); Lymphocyte % 45.7 % (19-41); Mean Corp Hgb Conc 33.4 g/dL (32-36); Mean Corpuscular Hgb 30.4 pg (27.0-32.0); Mean Corpuscular Volume 90.9 fL (81-99); Mean Platelet Vol. 9.8 fl (6.2-12.0); Monocyte# 0.48 X10^3/uL; Monocyte% 6.7 % (0-10); NRBC Flagged by Analyzer 0 % (0-5); Neutrophil # 3.15 X10^3/uL (2.7-7.7); Platelet Count 277 K/mm3 (150-450); RBC Distribution Width CV 12.9 % (11.6-14.6); RBC Distribution Width SD 42.5 fl (35.1-43.9); Red Blood Count 4.38 M/mm3 (4.2-5.4); White Blood Count 7.2 K/mm3 (4.4-11.0)
[2024-07-29 16:54] LABS: Color, Urine Yellow (Yellow); Glucose, Dipstick Normal (Normal); Ketone-Dipstick Negative (Negative); Leukocyte Esterase-Dipstick Negative /ul (Negative); Nitrite-Dipstick Negative (Negative); Occult Blood-Urine Negative /ul (Negative); Protein-Dipstick 30 mg/dl (Negative); Specific Gravity, Urine 1.005 (1.002-1.030); Urine Bilirubin Dipstick Negative (Negative); Urine Clarity Sl. Cloudy (Clear); Urine Urobilinogen Normal (Normal)
[2024-07-29 17:12] LABS: Hemoglobin A1c 5.3 % (<=5.6)
[2024-07-29 17:23] LABS: ALB/GLOB Ratio 1.6 RATIO (0.9-2.4); AST(SGOT) 34 U/L (<=31); Alanine Aminotransfer ALT/SGPT 46 U/L (<=34); Albumin, Serum 4.5 g/dL (3.5-5.0); Alkaline Phosphatase 97 U/L (35-104); Anion Gap 13 (5-15); BUN 13 mg/dL (4-19); BUN/Creat Ratio 15.5 RATIO (10-20); Calcium,Total 9.3 mg/dL (7.6-11.0); Carbon Dioxide 23.4 mmol/L (21.0-32.0); Chloride 102 mmol/L (98-108); Cholesterol 214 mg/dL (<=200); Creatinine, Serum 0.82 mg/dL (0.70-1.20); EST Glomerular Filtration Rate 97 (>60); Globulin 2.8 g/dL (2.2-4.2); Glucose 81 mg/dL (70-99); HIV Nonreactive (Nonreactive); High Density Lipoprotein 48 mg/dL; Low Density Lipoprotein Calc. 128 mg/dL; Potassium 4.1 mmol/L (3.3-5.1); Protein, Total 7.3 g/dL (5.9-8.4); Sodium Level 138 mmol/L (133-145); Syphilis Antibodies Nonreactive (Nonreactive); Total Bilirubin 0.21 mg/dL (0.00-1.30); Triglycerides 189 mg/dL; Very Low Density Lipoprotein 38 mg/dL (5-40); cholesterol:hdl ratio screen 4.47
[2024-07-29 17:24] LABS: Vitamin B12 448 pg/mL (180-914); Vitamin D,25 Hydroxy 14.7 ng/mL (30-100)
[2024-07-31 06:27] LABS: HEPATITIS B SURFACE AG Negative (Negative); Hep C Antibodies Non Reactive (Non Reactive); Hepatitis A IgM Antibody Negative (Negative); Hepatitis B Core AB IgM Negative (Negative)
== END | disposition home or self-care (01) ==
LOC: VSLAB 13:33
PROVIDERS: PCP Family Medicine
DX: Z01.419 Encounter for gynecological examination (general) (routine) without abnormal findings (principal); Z13.1 Encounter for screening for diabetes mellitus; Z13.6 Encounter for screening for cardiovascular disorders; Z13.220 Encounter for screening for lipoid disorders; Z92.22 Personal history of monoclonal drug therapy; Z72.51 High risk heterosexual behavior; E55.9 Vitamin D deficiency, unspecified
CPT/HCPCS: 36415; 80053; 80061; 80074; 81002; 82306; 82607; 83036; 84443; 85025; 86703; 86780; 88175; G0145